=== PATIENT | female | born 1945 | race Caucasian/White ===

== ENCOUNTER 2016-10-13 18:01 | Inpatient (IN) | payer OTHER, BC ==
[~2016-10-13] VITALS: Ht 167.6 cm; Wt 103.8 kg
[2016-10-13 18:17] LABS: POTASSIUM 3.8 mEq/L (3.7-5.4)
[2016-10-13 18:18] LABS: EOSINOPHIL (%) 1.7 % (0-5); EOSINOPHIL COUNT 0.2 K/uL (0-0.3); IMMATURE GRANULOCYTE (%) 0.3 % (0.0-0.7); IMMATURE GRANULOCYTE COUNT 0.3 K/uL; LYMPHOCYTE COUNT 2.5 K/uL (1.0-2.8); MCHC 33.7 G/DL (30.0-36.0); MCV 97.9 FL (83-99); MEAN PLAT.VOLUME 9.9 uM^3 (9.5-12.4); MONOCYTE (%) 6.6 % (3-12); MONOCYTE COUNT 0.7 K/uL (0-0.8); NEUTROPHIL (%) 68.8 % (45-76); NEUTROPHIL COUNT 7.7 K/uL (1.8-6.4); PLATELET COUNT 269 K/uL (156-360); RBC DIS.WIDTH-CV 12.8 % (11.8-14.6); RBC DIS.WIDTH-SD 44.5 % (39-53); RED BLOOD COUNT 3.88 M/uL (3.80-5.20); WHITE BLOOD COUNT 11.2 K/uL (4.1-10.2)
[2016-10-13 18:27] LABS: AMYLASE 55 IU/L (1-118); CHLORIDE 108 mEq/L (99-109); POTASSIUM 4.1 mEq/L (3.7-5.4); SODIUM 139 mEq/L (136-147)
[2016-10-13 18:29] LABS: GLUCOSE 231 mg/dL (70-99)
[2016-10-13 18:30] LABS: ANION GAP 14 MEQ/L (2-14)
[2016-10-13 18:32] LABS: GFR ESTIMATE (CALCULATED) 47 mL/min/; INTER. NORMALIZED RATIO 1.1; PROTHROMBIN TIME 10.7 (9.2-11.2); SERUM ETHYL ALCOHOL < 10 mg/dL
[2016-10-13 18:33] LABS: UREA NITROGEN (BUN) 22 mg/dL (9-23)
[2016-10-13 18:35] LABS: LIPASE 25 U/L (1.0-51.0)
[2016-10-13 18:40] LABS: TROP-I INTERPRETATION NEGATIVE; TROPONIN-I < 0.01 ng/mL (0.0-0.30)
[2016-10-13 19:49] LABS: BASE EXCESS -5.3 mEq/L (-3 to +3); BICARBONATE 23.2 mEq/L (22-26); CARBOXY HGB 1.2 % (0-5); METHEMOGLOBIN 0.8 % (0-1.5); PCO2 58 mm Hg (35-45); PO2 118 mm Hg (80-100); SITE RR; pH 7.21 (7.35-7.45)
[2016-10-13 19:50] LABS: COMMENTS - BLOOD GASES C+; DEVICE 840; FI02 100 %; MECHANICAL RATE 14 resp/min; MODE AC; PEEP 5 CM/H20; TIDAL VOLUME 350 ML; TOTAL RESP RATE 16 resp/min
[2016-10-13 20:37] LABS: BASE EXCESS -4.3 mEq/L (-3 to +3); BICARBONATE 22.6 mEq/L (22-26); CARBOXY HGB 1.3 % (0-5); METHEMOGLOBIN 0.9 % (0-1.5)
[2016-10-13 20:38] LABS: COMMENTS - BLOOD GASES C+; DEVICE 840; FI02 100 %; MECHANICAL RATE 14 resp/min; MODE AC; PCO2 48 mm Hg (35-45); PEEP 5 CM/H20; PO2 89 mm Hg (80-100); SITE RR; TIDAL VOLUME 400 ML; TOTAL RESP RATE 22 resp/min; pH 7.28 (7.35-7.45)
[2016-10-13 21:16] LABS: ADD MIUA? NO; BILIRUBIN NEGATIVE; BLOOD NEGATIVE; COLOR YELLOW ((YELLOW)); GLUCOSE (STRIP) NEGATIVE; KETONES NEGATIVE; LEUKOCYTES NEGATIVE; NITRITE NEGATIVE; PROTEIN (STRIP) 30; SPECIFIC GRAVITY 1.042 (1.000-1.030); UCUL ADDED? NO; UROBILINOGEN 0.2 MG/DL (0.2-1.0)
[2016-10-13 21:24] LABS: AMPHETAMINE NEGATIVE (500 ng/mL); BARBITURATES NEGATIVE (200 ng/mL); BENZODIAZEPINES PRESUMPTIVE POSITIVE (150 ng/mL); COCAINE NEGATIVE (150 ng/mL); INTERNAL CONTROLS VALID? YES; METHADONE NEGATIVE (200 ng/mL); METHAMPHETAMINE NEGATIVE (500 ng/mL); OPIATES (MORPHINE) NEGATIVE (100 ng/mL); OXYCODONE NEGATIVE (100 ng/mL); PHENCYCLIDINE NEGATIVE (25 ng/mL); PROPOXYPHENE NEGATIVE (300 ng/mL); THC CANNABINOIDS NEGATIVE (50 ng/mL); TRICYCLIC ANTIDEPRESSANTS PRESUMPTIVE POSITIVE (300 ng/mL)
[2016-10-13 21:25] LABS: ADD MEDTOX COMMENT Y
[2016-10-13 21:38] LABS: BASE EXCESS -3.6 mEq/L (-3 to +3); BICARBONATE 22.7 mEq/L (22-26); CARBOXY HGB 0.9 % (0-5); COMMENTS - BLOOD GASES C+; DEVICE 840; FI02 100 %; MECHANICAL RATE 20 resp/min; MODE AC; PCO2 45 mm Hg (35-45); PEEP 10 CM/H20; PO2 138 mm Hg (80-100); SITE RR; TIDAL VOLUME 400 ML; TOTAL RESP RATE 20 resp/min; pH 7.31 (7.35-7.45)
[2016-10-13 22:20] LABS: BENZODIAZEPINES, URINE SCREEN POSITIVE (200 ng/mL)
[2016-10-14] VITALS (23 sets, daily range): BP systolic 96–190; BP diastolic 47–128
[2016-10-14 01:41] LABS: HDL CHOLESTEROL 55 MG/DL (Desirable>=50); LDL CHOLESTEROL 78 mg/dL (Desirable<100); NON-HDL CHOLESTEROL 111 mg/dL (Desirable<160); TOTAL CHOLESTEROL 166 mg/dL (Desirable<200); TRIGLYCERIDES 165 MG/DL (Normal: <150)
[2016-10-14 02:04] LABS: METH RESISTANT S AUREUS PCR POSITIVE (NEGATIVE)
[2016-10-14 02:08] LABS: PROBE CHECK PASS
[2016-10-14 05:49] LABS: INTER. NORMALIZED RATIO 1.1; PROTHROMBIN TIME 10.7 (9.2-11.2)
[2016-10-14 06:01] LABS: ANION GAP 9 MEQ/L (2-14); CHLORIDE 110 MEQ/L (99-109); GFR ESTIMATE (CALCULATED) > 59 mL/min/; GLUCOSE 166 mg/dL (70-99); POTASSIUM 4.2 MEQ/L (3.7-5.4); SAMPLE HEMOLYSIS CHECK 0; SAMPLE ICTERIC CHECK 0; SAMPLE LIPEMIA CHECK 0; SODIUM 143 MEQ/L (136-147); UREA NITROGEN (BUN) 19 mg/dL (9-23)
[2016-10-14 06:51] LABS: HEMATOCRIT 32.4 % (36.0-46.0); MCH 32.8 PG (29.0-34.0); MCHC 32.7 G/DL (30.0-36.0); MCV 100.3 FL (83-99); MEAN PLAT.VOLUME 10.2 uM^3 (9.5-12.4); PLATELET COUNT 190 K/uL (156-360); RBC DIS.WIDTH-CV 13.6 % (11.8-14.6); RBC DIS.WIDTH-SD 49.2 % (39-53); RED BLOOD COUNT 3.23 M/uL (3.80-5.20); WHITE BLOOD COUNT 9.1 K/uL (4.1-10.2)
[2016-10-14 06:55] LABS: Estimated Average Glucose 177 mg/dL (70-123); HEMOGLOBIN A1c (GLYCOHEMOGLOB) 7.8 % HGB (Below 5.7)
[2016-10-14 13:23] LABS: BASE EXCESS -2.8 mEq/L (-3 to +3); BICARBONATE 21.9 mEq/L (22-26); CARBOXY HGB 1.4 % (0-5); METHEMOGLOBIN 1.4 % (0-1.5); pH 7.38 (7.35-7.45)
[2016-10-14 13:24] LABS: COMMENTS - BLOOD GASES NAC+; CONTINUOUS POS AIRWAY PRESSURE 5 cm H2O; DEVICE 840; FI02 40 %; MODE TUBE COMPENSATION; PCO2 37 mm Hg (35-45); PO2 84 mm Hg (80-100); SITE LR; TOTAL RESP RATE 23 resp/min
[2016-10-14 23:16] LABS: POINT-OF-CARE METER ID UU14162636
[2016-10-15] VITALS (21 sets, daily range): BP systolic 93–162; BP diastolic 47–103
[2016-10-15 12:22] LABS: POINT-OF-CARE METER ID UU13113731
[2016-10-15 16:57] LABS: POINT-OF-CARE METER ID UU13113731
[2016-10-15 22:42] LABS: POINT-OF-CARE METER ID UU13113731
[2016-10-16] VITALS (15 sets, daily range): BP systolic 126–163; BP diastolic 53–107
[2016-10-16 08:59] LABS: POINT-OF-CARE METER ID UU13113748
[2016-10-16] MEDS ORDERED: NEURONTIN300 MG PO (15:16)
[2016-10-16] MEDS ORDERED: PAXIL10 MG PO (15:16)
[2016-10-16] MEDS ORDERED: TOPROL XL100 MG PO (15:16)
[2016-10-16] MEDS ORDERED: LYRICA75 MG PO (15:17)
[2016-10-16] MEDS ORDERED: LIPITOR80 MG PO (15:17)
[2016-10-16] MEDS ORDERED: VALIUM5 MG PO (15:17)
[2016-10-16] MEDS ORDERED: ACTOS30 MG PO (15:18)
[2016-10-16] MEDS ORDERED: CILOSTAZOL100 MG PO (15:18)
[2016-10-16] MEDS ORDERED: METFORMIN HCL1000 MG PO (15:18)
[2016-10-16] MEDS ORDERED: ZETIA10 MG PO (15:18)
[2016-10-16] MEDS ORDERED: ELAVIL100 MG PO (15:18)
[2016-10-16 21:37] LABS: POINT-OF-CARE USER ID PHATLC
[2016-10-17] VITALS (11 sets, daily range): BP systolic 125–207; BP diastolic 77–122
[2016-10-17 07:25] LABS: HEMATOCRIT 38.6 % (36.0-46.0); MCHC 34.2 G/DL (30.0-36.0); MCV 96.5 FL (83-99); MEAN PLAT.VOLUME 10.4 uM^3 (9.5-12.4); RBC DIS.WIDTH-CV 12.9 % (11.8-14.6); RBC DIS.WIDTH-SD 45.1 % (39-53); WHITE BLOOD COUNT 10.9 K/uL (4.1-10.2)
[2016-10-17 07:28] LABS: PLATELET COUNT 276 K/uL (156-360)
[2016-10-17 07:36] LABS: ANION GAP 16 MEQ/L (2-14); CHLORIDE 103 MEQ/L (99-109); GFR ESTIMATE (CALCULATED) > 59 mL/min/; GLUCOSE 221 mg/dL (70-99); SAMPLE HEMOLYSIS CHECK 0; SAMPLE ICTERIC CHECK 0; SAMPLE LIPEMIA CHECK 0; SODIUM 140 MEQ/L (136-147); UREA NITROGEN (BUN) 13 mg/dL (9-23)
[2016-10-17 07:41] LABS: POTASSIUM 3.3 MEQ/L (3.7-5.4)
[2016-10-17 16:17] LABS: POINT-OF-CARE METER ID UU13113748
[2016-10-18] VITALS (20 sets, daily range): BP systolic 105–171; BP diastolic 56–99
[2016-10-18 10:14] LABS: ANION GAP 12 MEQ/L (2-14); CHLORIDE 107 MEQ/L (99-109); GFR ESTIMATE (CALCULATED) > 59 mL/min/; GLUCOSE 202 mg/dL (70-99); POTASSIUM 3.4 MEQ/L (3.7-5.4); SAMPLE HEMOLYSIS CHECK 0; SAMPLE ICTERIC CHECK 0; SAMPLE LIPEMIA CHECK 0; SODIUM 142 MEQ/L (136-147); UREA NITROGEN (BUN) 17 mg/dL (9-23)
[2016-10-18 10:19] LABS: MAGNESIUM 1.2 mg/dl (1.3-2.7)
[2016-10-18 22:31] LABS: POINT-OF-CARE METER ID UU13113748; POINT-OF-CARE USER ID 609231305
[2016-10-19] VITALS (14 sets, daily range): BP systolic 100–172; BP diastolic 43–109
[2016-10-19 05:59] LABS: EOSINOPHIL (%) 0.6 % (0-5); EOSINOPHIL COUNT 0.1 K/uL (0-0.3); HEMATOCRIT 36.8 % (36.0-46.0); IMMATURE GRANULOCYTE (%) 0.4 % (0.0-0.7); LYMPHOCYTE COUNT 2.3 K/uL (1.0-2.8); MCH 31.8 PG (29.0-34.0); MCHC 32.6 G/DL (30.0-36.0); MCV 97.6 FL (83-99); MEAN PLAT.VOLUME 10.1 uM^3 (9.5-12.4); MONOCYTE (%) 13.9 % (3-12); MONOCYTE COUNT 1.5 K/uL (0-0.8); PLATELET COUNT 280 K/uL (156-360); RBC DIS.WIDTH-CV 13.1 % (11.8-14.6); RED BLOOD COUNT 3.77 M/uL (3.80-5.20); WHITE BLOOD COUNT 10.9 K/uL (4.1-10.2)
[2016-10-19 06:31] LABS: ANION GAP 9 MEQ/L (2-14); CHLORIDE 106 MEQ/L (99-109); GFR ESTIMATE (CALCULATED) > 59 mL/min/; GLUCOSE 189 mg/dL (70-99); POTASSIUM 3.6 MEQ/L (3.7-5.4); SAMPLE HEMOLYSIS CHECK 0; SAMPLE ICTERIC CHECK 0; SAMPLE LIPEMIA CHECK 0; SODIUM 140 MEQ/L (136-147); UREA NITROGEN (BUN) 14 mg/dL (9-23)
[2016-10-19 06:38] LABS: MAGNESIUM 1.7 mg/dl (1.3-2.7)
[2016-10-19 11:58] LABS: POINT-OF-CARE METER ID UU13113748
[2016-10-20] VITALS (13 sets, daily range): BP systolic 94–171; BP diastolic 48–92
[2016-10-20 04:56] LABS: CHLORIDE 106 mEq/L (99-109); MAGNESIUM 1.4 mg/dL (1.3-2.7); POTASSIUM 3.6 mEq/L (3.7-5.4); SODIUM 140 mEq/L (136-147)
[2016-10-20 04:58] LABS: GLUCOSE 172 mg/dL (70-99)
[2016-10-20 04:59] LABS: ANION GAP 9 MEQ/L (2-14)
[2016-10-20 05:01] LABS: GFR ESTIMATE (CALCULATED) > 59 mL/min/
[2016-10-20 05:02] LABS: UREA NITROGEN (BUN) 13 mg/dL (9-23)
[2016-10-20 08:54] LABS: POINT-OF-CARE METER ID UU13113803
[2016-10-20 12:55] LABS: POINT-OF-CARE METER ID UU13113803
[2016-10-20 17:28] LABS: POINT-OF-CARE METER ID UU13113803
[2016-10-20 21:43] LABS: POINT-OF-CARE METER ID UU13113803
[2016-10-21] VITALS (8 sets, daily range): BP systolic 122–172; BP diastolic 65–77
[2016-10-21 05:34] LABS: EOSINOPHIL (%) 0.8 % (0-5); EOSINOPHIL COUNT 0.1 K/uL (0-0.3); HEMATOCRIT 33.7 % (36.0-46.0); IMMATURE GRANULOCYTE (%) 0.5 % (0.0-0.7); IMMATURE GRANULOCYTE COUNT 0.1 K/uL; LYMPHOCYTE COUNT 2.9 K/uL (1.0-2.8); MCH 34.4 PG (29.0-34.0); MCHC 34.7 G/DL (30.0-36.0); MCV 99.1 FL (83-99); MEAN PLAT.VOLUME 10.4 uM^3 (9.5-12.4); MONOCYTE COUNT 1.5 K/uL (0-0.8); NEUTROPHIL (%) 59.9 % (45-76); NEUTROPHIL COUNT 6.7 K/uL (1.8-6.4); PLATELET COUNT 258 K/uL (156-360); RBC DIS.WIDTH-CV 12.6 % (11.8-14.6); RBC DIS.WIDTH-SD 45.6 % (39-53); WHITE BLOOD COUNT 11.2 K/uL (4.1-10.2)
[2016-10-21 05:55] LABS: ANION GAP 10 MEQ/L (2-14); CHLORIDE 102 MEQ/L (99-109); GFR ESTIMATE (CALCULATED) > 59 mL/min/; GLUCOSE 170 mg/dL (70-99); POTASSIUM 4.1 MEQ/L (3.7-5.4); SAMPLE HEMOLYSIS CHECK 0; SAMPLE ICTERIC CHECK 0; SAMPLE LIPEMIA CHECK 0; SODIUM 137 MEQ/L (136-147); UREA NITROGEN (BUN) 11 mg/dL (9-23)
[2016-10-21 08:38] LABS: POINT-OF-CARE METER ID UU14162636
[2016-10-21 11:50] LABS: POINT-OF-CARE METER ID UU14162636
[2016-10-21 17:03] LABS: POINT-OF-CARE METER ID UU14162636
[2016-10-21 21:26] LABS: POINT-OF-CARE METER ID UU13113803
[2016-10-22] VITALS: BP 127/67
[2016-10-22 04:00] VITALS: BP 152/81
[2016-10-22 05:42] LABS: EOSINOPHIL (%) 0.9 % (0-5); EOSINOPHIL COUNT 0.1 K/uL (0-0.3); IMMATURE GRANULOCYTE (%) 0.4 % (0.0-0.7); LYMPHOCYTE COUNT 2.3 K/uL (1.0-2.8); MCH 32.2 PG (29.0-34.0); MCHC 33.1 G/DL (30.0-36.0); MCV 97.2 FL (83-99); MEAN PLAT.VOLUME 10.2 uM^3 (9.5-12.4); MONOCYTE (%) 12.8 % (3-12); MONOCYTE COUNT 1.3 K/uL (0-0.8); NEUTROPHIL (%) 63.4 % (45-76); NEUTROPHIL COUNT 6.7 K/uL (1.8-6.4); PLATELET COUNT 320 K/uL (156-360); RBC DIS.WIDTH-CV 12.4 % (11.8-14.6); RBC DIS.WIDTH-SD 44.1 % (39-53); WHITE BLOOD COUNT 10.5 K/uL (4.1-10.2)
[2016-10-22 06:04] LABS: ANION GAP 11 MEQ/L (2-14); CHLORIDE 100 MEQ/L (99-109); GFR ESTIMATE (CALCULATED) > 59 mL/min/; GLUCOSE 196 mg/dL (70-99); POTASSIUM 4.1 MEQ/L (3.7-5.4); SAMPLE HEMOLYSIS CHECK 0; SAMPLE ICTERIC CHECK 0; SAMPLE LIPEMIA CHECK 0; SODIUM 138 MEQ/L (136-147); UREA NITROGEN (BUN) 15 mg/dL (9-23)
[2016-10-22 08:00] VITALS: BP 168/87
[2016-10-22 08:08] LABS: POINT-OF-CARE METER ID UU14162636
[2016-10-22 12:00] VITALS: BP 102/51
[2016-10-22 13:30] LABS: POINT-OF-CARE METER ID UU14162636
[2016-10-22 16:00] VITALS: BP 131/67
[2016-10-22 16:47] LABS: POINT-OF-CARE METER ID UU14162636
[2016-10-22 20:00] VITALS: BP 130/64
[2016-10-22 22:36] LABS: POINT-OF-CARE METER ID UU13113748
[2016-10-23] VITALS (8 sets, daily range): BP systolic 101–148; BP diastolic 53–75
[2016-10-23 06:13] LABS: MEAN PLAT.VOLUME 10.7 uM^3 (9.5-12.4); PLATELET COUNT 348 K/uL (156-360)
[2016-10-23 06:30] LABS: HEMATOCRIT 37.3 % (36.0-46.0); MCH 33.6 PG (29.0-34.0); MCHC 33.8 G/DL (30.0-36.0); MCV 99.5 FL (83-99); RBC DIS.WIDTH-CV 12.7 % (11.8-14.6); RBC DIS.WIDTH-SD 46.1 % (39-53); RED BLOOD COUNT 3.75 M/uL (3.80-5.20); WHITE BLOOD COUNT 13.2 K/uL (4.1-10.2)
[2016-10-23 06:31] LABS: ANION GAP 13 MEQ/L (2-14); CHLORIDE 99 MEQ/L (99-109); DELETE MACHINE DIFF? YES; GFR ESTIMATE (CALCULATED) 52 mL/min/; GLUCOSE 263 mg/dL (70-99); SAMPLE HEMOLYSIS CHECK 0; SAMPLE ICTERIC CHECK 0; SAMPLE LIPEMIA CHECK 0; SODIUM 135 MEQ/L (136-147)
[2016-10-23 06:34] LABS: POTASSIUM 5.5 MEQ/L (3.7-5.4); UREA NITROGEN (BUN) 27 mg/dL (9-23)
[2016-10-23 07:57] LABS: ABS NEUTROPHIL COUNT 9.76; PLAT.SUFFICIENCY INCREASED; USER ID SDF
[2016-10-23 12:08] LABS: POINT-OF-CARE METER ID UU14174217
[2016-10-23 16:26] LABS: POINT-OF-CARE METER ID UU14174217
[2016-10-24] VITALS: BP 98/52
[2016-10-24 00:26] LABS: POINT-OF-CARE METER ID UU14174217
[2016-10-24 02:00] VITALS: BP 110/66
[2016-10-24 04:00] VITALS: BP 122/63
[2016-10-24 06:47] LABS: ANION GAP 14 MEQ/L (2-14); CHLORIDE 97 MEQ/L (99-109); GFR ESTIMATE (CALCULATED) 47 mL/min/; GLUCOSE 166 mg/dL (70-99); POTASSIUM 4.4 MEQ/L (3.7-5.4); SAMPLE HEMOLYSIS CHECK 0; SAMPLE ICTERIC CHECK 0; SAMPLE LIPEMIA CHECK 0; SODIUM 138 MEQ/L (136-147); UREA NITROGEN (BUN) 32 mg/dL (9-23)
[2016-10-24 08:00] VITALS: BP 106/43
[2016-10-24 10:00] VITALS: BP 125/51
[2016-10-24 11:54] LABS: POINT-OF-CARE USER ID 606021424
[2016-10-24 12:00] VITALS: BP 121/61
[2016-10-24] MEDS ORDERED: VALIUM5 MG PO (12:05)
[2016-10-24] MEDS ORDERED: TRAMADOL HCL50 MG PO (12:05)
[2016-10-24] MEDS ORDERED: LYRICA75 MG PO (12:05)
== END 2016-10-24 13:46 | DRG 64 ==
LOC: EME 18:01 → EDOF 20:56 → 4WEST 20:56 → 5SOUTH 20:56 → 4WEST 10-14 00:34 → 5SOUTH 10-17 00:27 → 4WEST 10-17 07:53
PROVIDERS: Emergency Medicine; Family Medicine; Internal Medicine Cardiovascular Disease; Internal Medicine Critical Care Medicine; Internal Medicine Nephrology; Physician Assistant Medical
DX: I63.412 Cerebral infarction due to embolism of left middle cerebral artery (principal); J96.02 Acute respiratory failure with hypercapnia; E87.2 Acidosis; R56.9 Unspecified convulsions; I48.0 Paroxysmal atrial fibrillation; G81.91 Hemiplegia, unspecified affecting right dominant side; I10 Essential (primary) hypertension; R41.4 Neurologic neglect syndrome; R47.01 Aphasia; E11.9 Type 2 diabetes mellitus without complications; E78.5 Hyperlipidemia, unspecified; I25.810 Atherosclerosis of coronary artery bypass graft(s) without angina pectoris; Z95.1 Presence of aortocoronary bypass graft; M54.5 Low back pain; R47.02 Dysphasia; I65.22 Occlusion and stenosis of left carotid artery; R29.730 NIHSS score 30; Z79.4 Long term (current) use of insulin; Z87.891 Personal history of nicotine dependence; Z95.5 Presence of coronary angioplasty implant and graft; E87.6 Hypokalemia; I70.209 Unspecified atherosclerosis of native arteries of extremities, unspecified extremity; K59.00 Constipation, unspecified; E66.9 Obesity, unspecified; Z68.38 Body mass index [BMI] 38.0-38.9, adult; R47.1 Dysarthria and anarthria; R45.1 Restlessness and agitation; R41.0 Disorientation, unspecified
CPT/HCPCS: 36600; 70450; 70496; 70498; 70551; 71010; 80047; 80048; 80061; 81003; 82150; 82803; 82948; 83036; 83605; 83690; 83735; 84100; 84132 91; 84443; 84484; 84999; 85025; 85027; 85610; 85730; 86850; 86900; 86901; 87070; 87205; 87641; 92507 GN; 92523 GN; 92526 GN; 93005; 93306; 94002; 94003; 94660; 94799; 95819; 97530 GO; 97530 GP; 99281; 99285; G0480; J0360; J1630; J1644; J1815; J1953; J2405; J2704; J3475; J7030; J7050; S0028

== ENCOUNTER 2016-12-25 13:43 | Inpatient (IN) | payer OTHER, BC ==
[~2016-12-25] VITALS: Ht 162.6 cm; Wt 96.0 kg
[~2016-12-25 13:43] MED LIST: ACTOS30 MG PO; CILOSTAZOL100 MG PO; ELAVIL100 MG PO; LIPITOR80 MG PO; LYRICA75 MG PO; METFORMIN HCL1000 MG PO; NEURONTIN300 MG PO; PAXIL10 MG PO; TOPROL XL100 MG PO; TRAMADOL HCL50 MG PO; VALIUM5 MG PO; ZETIA10 MG PO
[2016-12-25 14:29] LABS: HEMATOCRIT 37.2 % (36.0-46.0); MCH 31.5 PG (29.0-34.0); MCHC 33.1 G/DL (30.0-36.0); MCV 95.1 FL (83-99); MEAN PLAT.VOLUME 9.8 uM^3 (9.5-12.4); PLATELET COUNT 248 K/uL (156-360); RBC DIS.WIDTH-CV 13.3 % (11.8-14.6); RBC DIS.WIDTH-SD 46.5 % (39-53); RED BLOOD COUNT 3.91 M/uL (3.80-5.20); WHITE BLOOD COUNT 9.7 K/uL (4.1-10.2)
[2016-12-25 14:38] LABS: CHLORIDE 104 mEq/L (99-109); POTASSIUM 3.1 mEq/L (3.7-5.4); SODIUM 142 mEq/L (136-147)
[2016-12-25 14:40] LABS: GLUCOSE 116 mg/dL (70-99)
[2016-12-25 14:41] LABS: ANION GAP 14 MEQ/L (2-14)
[2016-12-25 14:44] LABS: GFR ESTIMATE (CALCULATED) 43 mL/min/; UREA NITROGEN (BUN) 19 mg/dL (9-23)
[2016-12-25 14:48] LABS: MAGNESIUM 0.9 mg/dL (1.3-2.7)
[2016-12-25] MEDS ORDERED: COLACE100 MG PO (16:38)
[2016-12-25] MEDS ORDERED: LASIX20 MG PO (16:39)
[2016-12-25] MEDS ORDERED: POTASSIUM CHLO10 MEQ PO (16:39)
[2016-12-25] MEDS ORDERED: LANTUS 3 M100 UNITS1 SC (16:41)
[2016-12-25] MEDS ORDERED: LYRICA50 MG PO (16:43)
[2016-12-25] MEDS ORDERED: NOVOLOG PE100 UNITS/ SC (16:43)
[2016-12-25] MEDS ORDERED: VALIUM5 MG PO (16:44)
[2016-12-25] MEDS ORDERED: CYMBALTA60 MG PO (16:44)
[2016-12-25] MEDS ORDERED: TYLENOL REGULA325 MG PO (16:45)
[2016-12-25] MEDS ORDERED: DULCOLAX10 MG PR (16:45)
[2016-12-25] MEDS ORDERED: ELIQUIS5 MG PO (16:46)
[2016-12-25] MEDS ORDERED: ULTRAM50 MG PO (16:46)
[2016-12-25] MEDS ORDERED: LIPITOR80 MG PO (16:47)
[2016-12-25] MEDS ORDERED: CHILD ASPIRIN81 M1 PO (16:47)
[2016-12-25] MEDS ORDERED: ZETIA10 MG PO (16:48)
[2016-12-25] MEDS ORDERED: GLUCOPHAGE1000 MG PO (16:49)
[2016-12-25] MEDS ORDERED: DUONEB 2.5-0.5 M3 ML AEROSOL (16:54)
[2016-12-25] MEDS ORDERED: ADVAIR HFA120 INHALA IH (16:55)
[2016-12-25] MEDS ORDERED: BAZA PROTECT CR57 GM TP (16:56)
[2016-12-25] MEDS ORDERED: AQUAPHOR W-NAT50 GM TP (16:56)
[2016-12-25 18:41] LABS: TROP-I INTERPRETATION NEGATIVE; TROPONIN-I 0.02 ng/mL (0.0-0.30)
[2016-12-25 20:01] VITALS: BP 97/61
[2016-12-25 20:31] VITALS: BP 98/60
[2016-12-25 21:28] VITALS: BP 148/74
[2016-12-26 07:44] VITALS: BP 136/65
[2016-12-26 11:25] VITALS: BP 109/69
[2016-12-26 15:53] VITALS: BP 155/74
[2016-12-26 19:33] VITALS: BP 127/58
[2016-12-26 23:44] VITALS: BP 119/65
[2016-12-27 06:52] LABS: EOSINOPHIL (%) 2.4 % (0-5); EOSINOPHIL COUNT 0.3 K/uL (0-0.3); HEMATOCRIT 30.8 % (36.0-46.0); IMMATURE GRANULOCYTE (%) 0.5 % (0.0-0.7); IMMATURE GRANULOCYTE COUNT 0.1 K/uL; INSTRUMENT ABS NEUTROPHIL CT 6.7 K/uL; LYMPHOCYTE COUNT 2.4 K/uL (1.0-2.8); MCH 31.4 PG (29.0-34.0); MCHC 32.1 G/DL (30.0-36.0); MCV 97.8 FL (83-99); MEAN PLAT.VOLUME 10.2 uM^3 (9.5-12.4); MONOCYTE (%) 10.4 % (3-12); MONOCYTE COUNT 1.1 K/uL (0-0.8); NEUTROPHIL (%) 63.8 % (45-76); NEUTROPHIL COUNT 6.7 K/uL (1.8-6.4); PLATELET COUNT 198 K/uL (156-360); RBC DIS.WIDTH-CV 13.6 % (11.8-14.6); RBC DIS.WIDTH-SD 48.7 % (39-53); RED BLOOD COUNT 3.15 M/uL (3.80-5.20); WHITE BLOOD COUNT 10.6 K/uL (4.1-10.2)
[2016-12-27 06:54] LABS: C DIFF TOXIN NEGATIVE (NEGATIVE)
[2016-12-27 06:55] LABS: PROBE CHECK PASS; SPECIMEN PROCESSING CONTROL PASS
[2016-12-27 07:02] LABS: ANION GAP 8 MEQ/L (2-14); CHLORIDE 108 MEQ/L (99-109); GFR ESTIMATE (CALCULATED) 47 mL/min/; GLUCOSE 132 mg/dL (70-99); POTASSIUM 3.2 MEQ/L (3.7-5.4); SAMPLE HEMOLYSIS CHECK 0; SAMPLE ICTERIC CHECK 0; SAMPLE LIPEMIA CHECK 0; SODIUM 141 MEQ/L (136-147); UREA NITROGEN (BUN) 12 mg/dL (9-23)
[2016-12-27 07:42] VITALS: BP 133/70
[2016-12-27 16:04] VITALS: BP 110/59
[2016-12-27 22:21] VITALS: BP 113/57
[2016-12-28 06:40] LABS: EOSINOPHIL (%) 2.4 % (0-5); EOSINOPHIL COUNT 0.3 K/uL (0-0.3); IMMATURE GRANULOCYTE (%) 0.8 % (0.0-0.7); IMMATURE GRANULOCYTE COUNT 0.1 K/uL; INSTRUMENT ABS NEUTROPHIL CT 7.2 K/uL; MCH 30.8 PG (29.0-34.0); MCHC 31.8 G/DL (30.0-36.0); MCV 96.9 FL (83-99); MEAN PLAT.VOLUME 10.1 uM^3 (9.5-12.4); MONOCYTE (%) 7.7 % (3-12); MONOCYTE COUNT 0.8 K/uL (0-0.8); NEUTROPHIL (%) 69.9 % (45-76); NEUTROPHIL COUNT 7.2 K/uL (1.8-6.4); PLATELET COUNT 221 K/uL (156-360); RBC DIS.WIDTH-CV 13.7 % (11.8-14.6); RED BLOOD COUNT 3.51 M/uL (3.80-5.20); WHITE BLOOD COUNT 10.3 K/uL (4.1-10.2)
[2016-12-28 07:20] LABS: ANION GAP 10 MEQ/L (2-14); CHLORIDE 109 MEQ/L (99-109); GFR ESTIMATE (CALCULATED) > 59 mL/min/; GLUCOSE 124 mg/dL (70-99); SAMPLE HEMOLYSIS CHECK 0; SAMPLE ICTERIC CHECK 0; SAMPLE LIPEMIA CHECK 0; SODIUM 142 MEQ/L (136-147); UREA NITROGEN (BUN) 8 mg/dL (9-23)
[2016-12-28 07:21] VITALS: BP 118/58
[2016-12-28 07:24] LABS: POTASSIUM 3.9 MEQ/L (3.7-5.4)
[2016-12-28 17:00] VITALS: BP 110/62
[2016-12-28 22:17] VITALS: BP 111/52
[2016-12-29 03:41] VITALS: BP 117/64
[2016-12-29 06:28] LABS: EOSINOPHIL (%) 3.4 % (0-5); EOSINOPHIL COUNT 0.3 K/uL (0-0.3); HEMATOCRIT 33.2 % (36.0-46.0); IMMATURE GRANULOCYTE (%) 0.7 % (0.0-0.7); IMMATURE GRANULOCYTE COUNT 0.1 K/uL; LYMPHOCYTE COUNT 2.4 K/uL (1.0-2.8); MCH 30.9 PG (29.0-34.0); MCHC 32.5 G/DL (30.0-36.0); MCV 95.1 FL (83-99); MEAN PLAT.VOLUME 10.3 uM^3 (9.5-12.4); MONOCYTE (%) 12.4 % (3-12); NEUTROPHIL (%) 51.8 % (45-76); PLATELET COUNT 216 K/uL (156-360); RBC DIS.WIDTH-CV 13.8 % (11.8-14.6); RBC DIS.WIDTH-SD 48.1 % (39-53); RED BLOOD COUNT 3.49 M/uL (3.80-5.20); WHITE BLOOD COUNT 7.7 K/uL (4.1-10.2)
[2016-12-29 06:59] LABS: ANION GAP 11 MEQ/L (2-14); CHLORIDE 103 MEQ/L (99-109); GFR ESTIMATE (CALCULATED) 52 mL/min/; GLUCOSE 161 mg/dL (70-99); POTASSIUM 3.6 MEQ/L (3.7-5.4); SAMPLE HEMOLYSIS CHECK 0; SAMPLE ICTERIC CHECK 0; SAMPLE LIPEMIA CHECK 0; SODIUM 141 MEQ/L (136-147); UREA NITROGEN (BUN) 10 mg/dL (9-23)
[2016-12-29 12:21] VITALS: BP 117/60
[2016-12-29 20:50] LABS: POINT-OF-CARE METER ID UU13113725
[2016-12-29 22:48] VITALS: BP 106/54
[2016-12-30 06:57] LABS: EOSINOPHIL (%) 1.8 % (0-5); EOSINOPHIL COUNT 0.2 K/uL (0-0.3); IMMATURE GRANULOCYTE (%) 0.7 % (0.0-0.7); IMMATURE GRANULOCYTE COUNT 0.1 K/uL; INSTRUMENT ABS NEUTROPHIL CT 4.4 K/uL; LYMPHOCYTE COUNT 2.7 K/uL (1.0-2.8); MCHC 33.1 G/DL (30.0-36.0); MCV 93.8 FL (83-99); MEAN PLAT.VOLUME 10.5 uM^3 (9.5-12.4); MONOCYTE (%) 13.6 % (3-12); MONOCYTE COUNT 1.2 K/uL (0-0.8); NEUTROPHIL (%) 51.7 % (45-76); NEUTROPHIL COUNT 4.4 K/uL (1.8-6.4); PLATELET COUNT 239 K/uL (156-360); RBC DIS.WIDTH-CV 13.7 % (11.8-14.6); RBC DIS.WIDTH-SD 46.5 % (39-53); RED BLOOD COUNT 3.84 M/uL (3.80-5.20); WHITE BLOOD COUNT 8.5 K/uL (4.1-10.2)
[2016-12-30 07:04] VITALS: BP 105/71
[2016-12-30 07:32] LABS: ANION GAP 13 MEQ/L (2-14); CHLORIDE 100 MEQ/L (99-109); GFR ESTIMATE (CALCULATED) 40 mL/min/; GLUCOSE 174 mg/dL (70-99); POTASSIUM 3.7 MEQ/L (3.7-5.4); SAMPLE HEMOLYSIS CHECK 0; SAMPLE ICTERIC CHECK 0; SAMPLE LIPEMIA CHECK 0; SODIUM 140 MEQ/L (136-147); UREA NITROGEN (BUN) 16 mg/dL (9-23)
[2016-12-30 10:48] LABS: POINT-OF-CARE METER ID UU13113725
[2016-12-30 16:02] VITALS: BP 107/65
[2016-12-30 23:20] VITALS: BP 100/59
[2016-12-31 07:14] LABS: ANION GAP 12 MEQ/L (2-14); CHLORIDE 96 MEQ/L (99-109); GFR ESTIMATE (CALCULATED) 43 mL/min/; GLUCOSE 193 mg/dL (70-99); POTASSIUM 3.3 MEQ/L (3.7-5.4); SAMPLE HEMOLYSIS CHECK 0; SAMPLE ICTERIC CHECK 0; SAMPLE LIPEMIA CHECK 0; SODIUM 139 MEQ/L (136-147); UREA NITROGEN (BUN) 21 mg/dL (9-23)
[2016-12-31 07:20] VITALS: BP 110/69
[2016-12-31 16:08] LABS: POINT-OF-CARE METER ID UU13113725
[2016-12-31 16:15] VITALS: BP 111/69
[2016-12-31 21:22] LABS: POINT-OF-CARE METER ID UU13113725
[2017-01-01 00:18] VITALS: BP 92/60
[2017-01-01 06:43] LABS: EOSINOPHIL (%) 2.3 % (0-5); EOSINOPHIL COUNT 0.2 K/uL (0-0.3); HEMATOCRIT 35.6 % (36.0-46.0); IMMATURE GRANULOCYTE (%) 0.8 % (0.0-0.7); IMMATURE GRANULOCYTE COUNT 0.1 K/uL; INSTRUMENT ABS NEUTROPHIL CT 5.1 K/uL; LYMPHOCYTE COUNT 2.6 K/uL (1.0-2.8); MCH 30.5 PG (29.0-34.0); MCHC 32.6 G/DL (30.0-36.0); MCV 93.7 FL (83-99); MONOCYTE (%) 13.1 % (3-12); MONOCYTE COUNT 1.2 K/uL (0-0.8); NEUTROPHIL COUNT 5.1 K/uL (1.8-6.4); PLATELET COUNT 252 K/uL (156-360); RBC DIS.WIDTH-CV 13.6 % (11.8-14.6); RBC DIS.WIDTH-SD 46.5 % (39-53); WHITE BLOOD COUNT 9.2 K/uL (4.1-10.2)
[2017-01-01 06:43] LABS: POINT-OF-CARE METER ID UU13113725
[2017-01-01 06:56] VITALS: BP 104/55
[2017-01-01 07:10] LABS: ANION GAP 10 MEQ/L (2-14); CHLORIDE 97 MEQ/L (99-109); GFR ESTIMATE (CALCULATED) 40 mL/min/; GLUCOSE 205 mg/dL (70-99); POTASSIUM 3.2 MEQ/L (3.7-5.4); SAMPLE HEMOLYSIS CHECK 0; SAMPLE ICTERIC CHECK 0; SAMPLE LIPEMIA CHECK 0; SODIUM 139 MEQ/L (136-147); UREA NITROGEN (BUN) 25 mg/dL (9-23)
[2017-01-01 10:51] LABS: MAGNESIUM 1.1 mg/dl (1.3-2.7)
[2017-01-01 11:42] LABS: POINT-OF-CARE METER ID UU13113725
[2017-01-01] MEDS ORDERED: K-DUR20 MEQ PO (12:47)
[2017-01-01] MEDS ORDERED: LYRICA50 MG PO (12:48)
[2017-01-01] MEDS ORDERED: ULTRAM50 MG PO (12:48)
[2017-01-01] MEDS ORDERED: VALIUM5 MG PO (12:48)
== END 2017-01-01 15:31 | disposition designated cancer center or children's hospital (05) | DRG 190 ==
LOC: EME 13:43 → 5EAST 19:45 → EDOF 19:45 → 5EAST 21:00
PROVIDERS: Emergency Medicine; Family Medicine
PROC: 5A09357 Assistance with Respiratory Ventilation, Less than 24 Consecutive Hours, Continuous Positive Airway Pressure (ICD-10-PCS; principal; 2016-12-28)
DX: J44.0 Chronic obstructive pulmonary disease with (acute) lower respiratory infection (principal); J18.9 Pneumonia, unspecified organism; J20.9 Acute bronchitis, unspecified; E87.6 Hypokalemia; E83.42 Hypomagnesemia; E87.70 Fluid overload, unspecified; I48.91 Unspecified atrial fibrillation; I27.2 Other secondary pulmonary hypertension; I10 Essential (primary) hypertension; E11.9 Type 2 diabetes mellitus without complications; I69.391 Dysphagia following cerebral infarction; I69.320 Aphasia following cerebral infarction; I69.398 Other sequelae of cerebral infarction; R26.2 Difficulty in walking, not elsewhere classified; E78.5 Hyperlipidemia, unspecified; I25.10 Atherosclerotic heart disease of native coronary artery without angina pectoris; E66.9 Obesity, unspecified; G47.33 Obstructive sleep apnea (adult) (pediatric); D64.9 Anemia, unspecified; Z87.891 Personal history of nicotine dependence; Z95.1 Presence of aortocoronary bypass graft; Z68.36 Body mass index [BMI] 36.0-36.9, adult; I25.2 Old myocardial infarction
CPT/HCPCS: 71010; 71020; 80048; 82948; 83735; 83880; 84100; 84484; 85025; 85027; 87493; 93005; 94640; 94640 76; 94660; 94799; 99202; 99281; 99285; J1815; J1940; J1956; J3475; J3480; J7030

== ENCOUNTER 2017-01-25 17:05 | Inpatient (IN) | payer OTHER, BC ==
[~2017-01-25] VITALS: Ht 165.1 cm; Wt 92.3 kg
[~2017-01-25 17:05] MED LIST changes: +ADVAIR HFA120 INHALA IH; +AQUAPHOR W-NAT50 GM TP; +BAZA PROTECT CR57 GM TP; +CHILD ASPIRIN81 M1 PO; +COLACE100 MG PO; +CYMBALTA60 MG PO; +DULCOLAX10 MG PR; +DUONEB 2.5-0.5 M3 ML AEROSOL; +ELIQUIS5 MG PO; +GLUCOPHAGE1000 MG PO; +K-DUR20 MEQ PO; +LANTUS 3 M100 UNITS1 SC; +LASIX20 MG PO; +LYRICA50 MG PO; +NOVOLOG PE100 UNITS/ SC; +POTASSIUM CHLO10 MEQ PO; +TYLENOL REGULA325 MG PO; +ULTRAM50 MG PO
[2017-01-25 17:21] LABS: EOSINOPHIL (%) 2.1 % (0-5); EOSINOPHIL COUNT 0.2 K/uL (0-0.3); IMMATURE GRANULOCYTE (%) 0.5 % (0.0-0.7); INSTRUMENT ABS NEUTROPHIL CT 4.2 K/uL; MCH 31.1 PG (29.0-34.0); MCHC 32.9 G/DL (30.0-36.0); MCV 94.4 FL (83-99); MEAN PLAT.VOLUME 10.3 uM^3 (9.5-12.4); MONOCYTE (%) 8.8 % (3-12); MONOCYTE COUNT 0.7 K/uL (0-0.8); NEUTROPHIL (%) 51.8 % (45-76); NEUTROPHIL COUNT 4.2 K/uL (1.8-6.4); PLATELET COUNT 204 K/uL (156-360); RBC DIS.WIDTH-CV 14.8 % (11.8-14.6); RBC DIS.WIDTH-SD 51.2 % (39-53); WHITE BLOOD COUNT 8.2 K/uL (4.1-10.2)
[2017-01-25 17:31] LABS: INTER. NORMALIZED RATIO 1.2; PROTHROMBIN TIME 12.5 (9.2-11.2); PTT 28.8 (25-32)
[2017-01-25 17:42] LABS: TROP-I INTERPRETATION NEGATIVE; TROPONIN-I 0.02 ng/mL (0.0-0.30)
[2017-01-25] MEDS ORDERED: K-DUR20 MEQ PO (21:32)
[2017-01-25 22:04] LABS: AMYLASE 35 IU/L (1-118); CHLORIDE 109 mEq/L (99-109); POTASSIUM 4.3 mEq/L (3.7-5.4); SODIUM 139 mEq/L (136-147)
[2017-01-25 22:06] LABS: GLUCOSE 149 mg/dL (70-99)
[2017-01-25 22:07] LABS: ANION GAP 13 MEQ/L (2-14)
[2017-01-25 22:09] LABS: SERUM ETHYL ALCOHOL < 10 mg/dL
[2017-01-25 22:10] LABS: GFR ESTIMATE (CALCULATED) 47 mL/min/
[2017-01-25 22:11] LABS: UREA NITROGEN (BUN) 17 mg/dL (9-23)
[2017-01-25 22:13] LABS: LIPASE 15 U/L (1.0-51.0)
[2017-01-25 22:36] LABS: HDL CHOLESTEROL 47 MG/DL (Desirable>=50); LDL CHOLESTEROL 45 mg/dL (Desirable<100); NON-HDL CHOLESTEROL 66 mg/dL (Desirable<160); TOTAL CHOLESTEROL 113 mg/dL (Desirable<200); TRIGLYCERIDES 105 MG/DL (Normal: <150)
[2017-01-25 22:47] LABS: Estimated Average Glucose 137 mg/dL (70-123); HEMOGLOBIN A1c (GLYCOHEMOGLOB) 6.4 % HGB (Below 5.7)
[2017-01-25 23:40] VITALS: BP 126/60
[2017-01-26] VITALS: BP 120/60
[2017-01-26 04:00] VITALS: BP 114/55
[2017-01-26 07:00] LABS: HEMATOCRIT 31.6 % (36.0-46.0); MCH 31.1 PG (29.0-34.0); MCHC 32.6 G/DL (30.0-36.0); MCV 95.5 FL (83-99); MEAN PLAT.VOLUME 10.6 uM^3 (9.5-12.4); PLATELET COUNT 204 K/uL (156-360); RBC DIS.WIDTH-CV 14.8 % (11.8-14.6); RBC DIS.WIDTH-SD 52.1 % (39-53); RED BLOOD COUNT 3.31 M/uL (3.80-5.20); WHITE BLOOD COUNT 7.5 K/uL (4.1-10.2)
[2017-01-26 07:59] VITALS: BP 102/55
[2017-01-26 08:06] LABS: CHLORIDE 110 mEq/L (99-109); POTASSIUM 4.3 mEq/L (3.7-5.4); SODIUM 142 mEq/L (136-147)
[2017-01-26 08:09] LABS: ANION GAP 9 MEQ/L (2-14)
[2017-01-26 08:10] LABS: GLUCOSE 97 mg/dL (70-99); TOTAL BILIRUBIN 0.5 mg/dL (0.0-1.0)
[2017-01-26 08:12] LABS: ALKALINE PHOSPHATASE 30 IU/L (3-129); GFR ESTIMATE (CALCULATED) 58 mL/min/
[2017-01-26 08:13] LABS: UREA NITROGEN (BUN) 16 mg/dL (9-23)
[2017-01-26 11:14] VITALS: BP 132/60
[2017-01-26 15:37] VITALS: BP 110/69
[2017-01-26 20:00] VITALS: BP 153/68
[2017-01-26 20:44] LABS: POINT-OF-CARE METER ID UU14174225
[2017-01-27 00:27] VITALS: BP 154/70
[2017-01-27 04:00] VITALS: BP 107/59
[2017-01-27 06:49] LABS: EOSINOPHIL (%) 3.2 % (0-5); EOSINOPHIL COUNT 0.2 K/uL (0-0.3); HEMATOCRIT 30.4 % (36.0-46.0); IMMATURE GRANULOCYTE (%) 0.5 % (0.0-0.7); INSTRUMENT ABS NEUTROPHIL CT 2.8 K/uL; LYMPHOCYTE COUNT 2.9 K/uL (1.0-2.8); MCH 31.6 PG (29.0-34.0); MCHC 33.2 G/DL (30.0-36.0); MEAN PLAT.VOLUME 10.2 uM^3 (9.5-12.4); MONOCYTE (%) 10.7 % (3-12); MONOCYTE COUNT 0.7 K/uL (0-0.8); NEUTROPHIL (%) 41.9 % (45-76); NEUTROPHIL COUNT 2.8 K/uL (1.8-6.4); PLATELET COUNT 192 K/uL (156-360); RBC DIS.WIDTH-CV 14.8 % (11.8-14.6); RBC DIS.WIDTH-SD 51.8 % (39-53); WHITE BLOOD COUNT 6.6 K/uL (4.1-10.2)
[2017-01-27 07:11] LABS: ANION GAP 7 MEQ/L (2-14); CHLORIDE 106 MEQ/L (99-109); GFR ESTIMATE (CALCULATED) 52 mL/min/; GLUCOSE 97 mg/dL (70-99); POTASSIUM 4.2 MEQ/L (3.7-5.4); SAMPLE HEMOLYSIS CHECK 0; SAMPLE ICTERIC CHECK 0; SAMPLE LIPEMIA CHECK 0; SODIUM 141 MEQ/L (136-147); UREA NITROGEN (BUN) 18 mg/dL (9-23)
[2017-01-27 07:55] VITALS: BP 121/59
[2017-01-27 11:27] VITALS: BP 132/62
[2017-01-27 15:51] VITALS: BP 147/69
[2017-01-27 17:03] LABS: POINT-OF-CARE METER ID UU14188625
[2017-01-27 19:24] VITALS: BP 147/69
[2017-01-28 00:36] VITALS: BP 104/52
[2017-01-28 06:40] LABS: EOSINOPHIL (%) 2.6 % (0-5); EOSINOPHIL COUNT 0.2 K/uL (0-0.3); HEMATOCRIT 29.6 % (36.0-46.0); IMMATURE GRANULOCYTE (%) 0.3 % (0.0-0.7); INSTRUMENT ABS NEUTROPHIL CT 3.2 K/uL; LYMPHOCYTE COUNT 2.9 K/uL (1.0-2.8); MCH 31.3 PG (29.0-34.0); MCHC 33.1 G/DL (30.0-36.0); MCV 94.6 FL (83-99); MEAN PLAT.VOLUME 10.4 uM^3 (9.5-12.4); MONOCYTE (%) 10.2 % (3-12); MONOCYTE COUNT 0.7 K/uL (0-0.8); NEUTROPHIL (%) 45.6 % (45-76); NEUTROPHIL COUNT 3.2 K/uL (1.8-6.4); PLATELET COUNT 199 K/uL (156-360); RBC DIS.WIDTH-CV 14.9 % (11.8-14.6); RBC DIS.WIDTH-SD 51.3 % (39-53); RED BLOOD COUNT 3.13 M/uL (3.80-5.20); WHITE BLOOD COUNT 7.1 K/uL (4.1-10.2)
[2017-01-28 08:43] VITALS: BP 108/56
[2017-01-28 12:55] VITALS: BP 110/54
[2017-01-28 17:03] VITALS: BP 107/56
[2017-01-28 20:52] VITALS: BP 130/65
[2017-01-28 21:42] LABS: POINT-OF-CARE METER ID UU14174225
[2017-01-29 00:21] VITALS: BP 104/51
[2017-01-29 00:36] LABS: C DIFF TOXIN NEGATIVE (NEGATIVE); PROBE CHECK PASS; SPECIMEN PROCESSING CONTROL PASS
[2017-01-29 04:10] VITALS: BP 137/72
[2017-01-29 08:09] VITALS: BP 102/51
[2017-01-29 08:41] LABS: POINT-OF-CARE METER ID UU14188625
[2017-01-29 08:47] LABS: EOSINOPHIL (%) 2.2 % (0-5); EOSINOPHIL COUNT 0.2 K/uL (0-0.3); HEMATOCRIT 31.4 % (36.0-46.0); IMMATURE GRANULOCYTE (%) 0.6 % (0.0-0.7); INSTRUMENT ABS NEUTROPHIL CT 3.7 K/uL; LYMPHOCYTE COUNT 2.2 K/uL (1.0-2.8); MCH 30.8 PG (29.0-34.0); MCHC 32.5 G/DL (30.0-36.0); MCV 94.9 FL (83-99); MEAN PLAT.VOLUME 9.8 uM^3 (9.5-12.4); MONOCYTE (%) 9.6 % (3-12); MONOCYTE COUNT 0.7 K/uL (0-0.8); NEUTROPHIL (%) 54.2 % (45-76); NEUTROPHIL COUNT 3.7 K/uL (1.8-6.4); PLATELET COUNT 193 K/uL (156-360); RBC DIS.WIDTH-SD 51.8 % (39-53); RED BLOOD COUNT 3.31 M/uL (3.80-5.20); WHITE BLOOD COUNT 6.8 K/uL (4.1-10.2)
[2017-01-29 09:11] LABS: ANION GAP 8 MEQ/L (2-14); CHLORIDE 104 MEQ/L (99-109); GFR ESTIMATE (CALCULATED) 58 mL/min/; GLUCOSE 110 mg/dL (70-99); POTASSIUM 4.4 MEQ/L (3.7-5.4); SAMPLE HEMOLYSIS CHECK 0; SAMPLE ICTERIC CHECK 0; SAMPLE LIPEMIA CHECK 0; SODIUM 139 MEQ/L (136-147); UREA NITROGEN (BUN) 15 mg/dL (9-23)
[2017-01-29 13:38] VITALS: BP 132/59
[2017-01-29 15:38] VITALS: BP 101/52
[2017-01-29 17:40] LABS: POINT-OF-CARE METER ID UU14174225
[2017-01-29 19:39] VITALS: BP 115/63
[2017-01-30 00:47] VITALS: BP 91/52
[2017-01-30 04:25] VITALS: BP 109/59
[2017-01-30 09:24] LABS: POINT-OF-CARE METER ID UU14174225
[2017-01-30 10:19] VITALS: BP 127/69
[2017-01-30 13:19] LABS: POINT-OF-CARE METER ID UU14174225
== END 2017-01-30 15:40 | disposition home health service (06) | DRG 65 ==
LOC: EME → EDBD 17:05 → EME 17:05 → 5SOUTH 21:05 → EDOF 21:05 → 5SOUTH 23:41
PROVIDERS: Emergency Medicine; Family Medicine; Internal Medicine
DX: I63.9 Cerebral infarction, unspecified (principal); R13.10 Dysphagia, unspecified; G81.91 Hemiplegia, unspecified affecting right dominant side; R47.1 Dysarthria and anarthria; R29.810 Facial weakness; G47.33 Obstructive sleep apnea (adult) (pediatric); I48.91 Unspecified atrial fibrillation; J44.9 Chronic obstructive pulmonary disease, unspecified; E11.9 Type 2 diabetes mellitus without complications; I10 Essential (primary) hypertension; I25.10 Atherosclerotic heart disease of native coronary artery without angina pectoris; D64.9 Anemia, unspecified; E78.5 Hyperlipidemia, unspecified; E66.9 Obesity, unspecified; Z68.33 Body mass index [BMI] 33.0-33.9, adult; Z87.891 Personal history of nicotine dependence
CPT/HCPCS: 70450; 70551; 80048; 80053; 80061; 81003; 82150; 82948; 83036; 83690; 84484; 85025; 85027; 85610; 85730; 86900; 86901; 87493; 92507 GN; 92523 GN; 92526 GN; 92610 GN; 93005; 94640; 94640 76; 94660; 94799; 99202; 99281; 99285; G0480; J1815; J2405

== ENCOUNTER → 2017-03-01 | Outpatient (CLI) | payer MEDICARE, BC | END | disposition home or self-care (01) | LOC: CDC 10:38 | DX: R94.31 Abnormal electrocardiogram [ECG] [EKG] (principal); H25.12 Age-related nuclear cataract, left eye | CPT/HCPCS: 93000 ==

== ENCOUNTER 2017-03-02 11:58 | Emergency (ER) | payer OTHER, BC ==
[~2017-03-02] VITALS: Ht 167.6 cm; Wt 94.5 kg
[2017-03-02 15:20] VITALS: BP 152/95
== END 2017-03-02 15:20 | disposition home or self-care (01) ==
LOC: EME 11:58
DX: S93.402A Sprain of unspecified ligament of left ankle, initial encounter (principal); W01.0XXA Fall on same level from slipping, tripping and stumbling without subsequent striking against object, initial encounter; Z86.73 Personal history of transient ischemic attack (TIA), and cerebral infarction without residual deficits; Z95.1 Presence of aortocoronary bypass graft; Z95.5 Presence of coronary angioplasty implant and graft; I48.91 Unspecified atrial fibrillation; Z99.81 Dependence on supplemental oxygen; E11.9 Type 2 diabetes mellitus without complications; I10 Essential (primary) hypertension; I25.2 Old myocardial infarction; Z79.4 Long term (current) use of insulin; Z79.82 Long term (current) use of aspirin; Z79.84 Long term (current) use of oral hypoglycemic drugs; Z87.891 Personal history of nicotine dependence
CPT/HCPCS: 73630; 99281; 99284; G8978 GP CI; G8979 GP CH; G8987 GO CI; G8988 GO CH

== ENCOUNTER 2017-04-22 17:37 | Inpatient (IN) | payer OTHER, BC ==
[~2017-04-22] VITALS: Ht 165.1 cm; Wt 81.3 kg
[2017-04-22 17:56] LABS: MCV 97.1 FL (83-99); MEAN PLAT.VOLUME 9.9 uM^3 (9.5-12.4); PLATELET COUNT 237 K/uL (156-360); RBC DIS.WIDTH-CV 13.5 % (11.8-14.6); RBC DIS.WIDTH-SD 48.4 % (39-53); RED BLOOD COUNT 4.12 M/uL (3.80-5.20); WHITE BLOOD COUNT 9.4 K/uL (4.1-10.2)
[2017-04-22 18:04] LABS: CHLORIDE 100 mEq/L (99-109); POTASSIUM 4.8 mEq/L (3.7-5.4); SODIUM 138 mEq/L (136-147)
[2017-04-22 18:07] LABS: GLUCOSE 151 mg/dL (70-99)
[2017-04-22 18:08] LABS: ANION GAP 17 MEQ/L (2-14)
[2017-04-22 18:09] LABS: TOTAL BILIRUBIN 0.5 mg/dL (0.0-1.0)
[2017-04-22 18:10] LABS: ALKALINE PHOSPHATASE 34 IU/L (3-129); GFR ESTIMATE (CALCULATED) 16 mL/min/
[2017-04-22 18:12] LABS: UREA NITROGEN (BUN) 32 mg/dL (9-23)
[2017-04-22 18:14] LABS: LIPASE 34 U/L (1.0-51.0)
[2017-04-22 19:52] LABS: ADD MIUA? YES; BILIRUBIN NEGATIVE; BLOOD SMALL; COLOR AMBER ((YELLOW)); GLUCOSE (STRIP) NEGATIVE; KETONES NEGATIVE; LEUKOCYTES LARGE; NITRITE NEGATIVE; PROTEIN (STRIP) 100; SPECIFIC GRAVITY 1.018 (1.000-1.030); UROBILINOGEN 0.2 MG/DL (0.2-1.0)
[2017-04-22 21:02] LABS: BACTERIA 1+ /HPF; CASTS PRESENT /LPF; CRYSTALS NONE SEEN; EPITHELIAL CELLS 1+ /HPF; HYALINE CASTS 0-5 /LPF; MUCUS RARE /LPF; UCUL ADDED? NO; WHITE BLOOD CELLS 20-30 /HPF (0-5)
[2017-04-22] MEDS ORDERED: BUPROPION XL150 MG PO (22:58)
[2017-04-23] VITALS (8 sets, daily range): BP systolic 115–143; BP diastolic 61–87
[2017-04-23 05:18] LABS: METH RESISTANT S AUREUS PCR POSITIVE (NEGATIVE); PROBE CHECK PASS
[2017-04-23 06:27] LABS: HEMATOCRIT 33.3 % (36.0-46.0); MCH 32.6 PG (29.0-34.0); MCHC 33.3 G/DL (30.0-36.0); MCV 97.7 FL (83-99); PLATELET COUNT 196 K/uL (156-360); RBC DIS.WIDTH-CV 13.6 % (11.8-14.6); RBC DIS.WIDTH-SD 48.6 % (39-53); RED BLOOD COUNT 3.41 M/uL (3.80-5.20); WHITE BLOOD COUNT 10.1 K/uL (4.1-10.2)
[2017-04-23 06:34] LABS: POINT-OF-CARE METER ID UU14208753
[2017-04-23 07:26] LABS: ALKALINE PHOSPHATASE 25 IU/L (3-129); ANION GAP 15 MEQ/L (2-14); CHLORIDE 105 MEQ/L (99-109); GFR ESTIMATE (CALCULATED) 16 mL/min/; MAGNESIUM 1.1 mg/dl (1.3-2.7); POTASSIUM 3.9 MEQ/L (3.7-5.4); SAMPLE HEMOLYSIS CHECK 0; SAMPLE ICTERIC CHECK 0; SAMPLE LIPEMIA CHECK 0; SODIUM 140 MEQ/L (136-147); TOTAL BILIRUBIN 0.4 MG/DL (0.0-1.0); UREA NITROGEN (BUN) 31 mg/dL (9-23)
[2017-04-23 07:27] LABS: GLUCOSE 96 mg/dL (70-99)
[2017-04-23 11:47] LABS: POINT-OF-CARE METER ID UU14208753
[2017-04-23 17:01] LABS: POINT-OF-CARE METER ID UU14208753
[2017-04-23 21:24] LABS: POINT-OF-CARE METER ID UU14208753
[2017-04-24 03:55] VITALS: BP 122/56
[2017-04-24 07:30] LABS: POINT-OF-CARE METER ID UU14208753
[2017-04-24 07:56] VITALS: BP 136/97
[2017-04-24 08:42] LABS: HEMATOCRIT 34.1 % (36.0-46.0); MCV 97.2 FL (83-99); MEAN PLAT.VOLUME 10.1 uM^3 (9.5-12.4); PLATELET COUNT 186 K/uL (156-360); RBC DIS.WIDTH-CV 13.3 % (11.8-14.6); RBC DIS.WIDTH-SD 47.3 % (39-53); RED BLOOD COUNT 3.51 M/uL (3.80-5.20)
[2017-04-24 09:19] LABS: ALKALINE PHOSPHATASE 26 IU/L (3-129); ANION GAP 11 MEQ/L (2-14); CHLORIDE 106 MEQ/L (99-109); GFR ESTIMATE (CALCULATED) 19 mL/min/; GLUCOSE 87 mg/dL (70-99); IRON 79 MCG/DL (35-150); POTASSIUM 3.9 MEQ/L (3.7-5.4); SAMPLE HEMOLYSIS CHECK 0; SAMPLE ICTERIC CHECK 0; SAMPLE LIPEMIA CHECK 0; SODIUM 140 MEQ/L (136-147); UREA NITROGEN (BUN) 28 mg/dL (9-23)
[2017-04-24 09:20] LABS: TOTAL BILIRUBIN 0.5 MG/DL (0.0-1.0)
[2017-04-24 12:13] VITALS: BP 143/67
[2017-04-24 16:23] LABS: POINT-OF-CARE METER ID UU14208753
[2017-04-24 16:54] VITALS: BP 108/64
[2017-04-24 20:19] VITALS: BP 127/69
[2017-04-24 21:24] LABS: POINT-OF-CARE METER ID UU14208750
[2017-04-24 23:56] VITALS: BP 100/60
[2017-04-25 04:29] VITALS: BP 116/65
[2017-04-25 06:23] LABS: POINT-OF-CARE METER ID UU14208750
[2017-04-25 07:17] LABS: EOSINOPHIL (%) 2.8 % (0-5); EOSINOPHIL COUNT 0.2 K/uL (0-0.3); HEMATOCRIT 32.8 % (36.0-46.0); IMMATURE GRANULOCYTE (%) 0.3 % (0.0-0.7); INSTRUMENT ABS NEUTROPHIL CT 2.9 K/uL; LYMPHOCYTE COUNT 2.6 K/uL (1.0-2.8); MCH 33.3 PG (29.0-34.0); MCHC 34.1 G/DL (30.0-36.0); MCV 97.6 FL (83-99); MEAN PLAT.VOLUME 10.4 uM^3 (9.5-12.4); MONOCYTE (%) 11.9 % (3-12); MONOCYTE COUNT 0.8 K/uL (0-0.8); NEUTROPHIL (%) 44.6 % (45-76); NEUTROPHIL COUNT 2.9 K/uL (1.8-6.4); PLATELET COUNT 158 K/uL (156-360); RBC DIS.WIDTH-CV 13.3 % (11.8-14.6); RBC DIS.WIDTH-SD 47.6 % (39-53); RED BLOOD COUNT 3.36 M/uL (3.80-5.20); WHITE BLOOD COUNT 6.5 K/uL (4.1-10.2)
[2017-04-25 08:04] VITALS: BP 128/70
[2017-04-25 08:05] LABS: ANION GAP 11 MEQ/L (2-14); CHLORIDE 107 MEQ/L (99-109); GFR ESTIMATE (CALCULATED) 26 mL/min/; GLUCOSE 103 mg/dL (70-99); POTASSIUM 3.5 MEQ/L (3.7-5.4); SAMPLE HEMOLYSIS CHECK 0; SAMPLE ICTERIC CHECK 0; SAMPLE LIPEMIA CHECK 0; SODIUM 139 MEQ/L (136-147); UREA NITROGEN (BUN) 25 mg/dL (9-23)
[2017-04-25 12:11] LABS: POINT-OF-CARE METER ID UU14208750
[2017-04-25 12:28] VITALS: BP 120/72
[2017-04-25 15:26] VITALS: BP 130/80
[2017-04-25 16:49] LABS: POINT-OF-CARE METER ID UU14208750
[2017-04-25 19:36] VITALS: BP 115/60
[2017-04-25 21:32] LABS: POINT-OF-CARE METER ID UU14208750
[2017-04-26 00:10] VITALS: BP 115/50
[2017-04-26 03:31] VITALS: BP 120/70
[2017-04-26 07:27] LABS: ANION GAP 9 MEQ/L (2-14); CHLORIDE 110 MEQ/L (99-109); GFR ESTIMATE (CALCULATED) 40 mL/min/; GLUCOSE 102 mg/dL (70-99); POTASSIUM 3.8 MEQ/L (3.7-5.4); SAMPLE HEMOLYSIS CHECK 0; SAMPLE ICTERIC CHECK 0; SAMPLE LIPEMIA CHECK 0; SODIUM 142 MEQ/L (136-147); UREA NITROGEN (BUN) 19 mg/dL (9-23)
[2017-04-26 08:45] VITALS: BP 132/65
[2017-04-26 09:07] LABS: ANION GAP 7 MEQ/L (2-14); CHLORIDE 111 MEQ/L (99-109); POTASSIUM 3.9 MEQ/L (3.7-5.4); SAMPLE HEMOLYSIS CHECK 0; SAMPLE ICTERIC CHECK 0; SAMPLE LIPEMIA CHECK 0; SODIUM 143 MEQ/L (136-147)
[2017-04-26 09:13] LABS: GFR ESTIMATE (CALCULATED) 43 mL/min/; GLUCOSE 110 mg/dL (70-99); UREA NITROGEN (BUN) 19 mg/dL (9-23)
[2017-04-26 12:40] LABS: POINT-OF-CARE METER ID UU14208750
[2017-04-26 16:01] VITALS: BP 99/55
[2017-04-26 16:43] LABS: POINT-OF-CARE METER ID UU14208750
[2017-04-26 20:42] VITALS: BP 114/63
[2017-04-26 21:30] LABS: POINT-OF-CARE METER ID UU14208750
[2017-04-27 00:31] VITALS: BP 102/61
[2017-04-27 04:39] VITALS: BP 103/48
[2017-04-27 06:26] LABS: POINT-OF-CARE METER ID UU14208750
[2017-04-27 07:30] VITALS: BP 113/62
[2017-04-27 07:30] LABS: ANION GAP 10 MEQ/L (2-14); CHLORIDE 111 MEQ/L (99-109); GFR ESTIMATE (CALCULATED) 43 mL/min/; GLUCOSE 106 mg/dL (70-99); POTASSIUM 3.6 MEQ/L (3.7-5.4); SAMPLE HEMOLYSIS CHECK 0; SAMPLE ICTERIC CHECK 0; SAMPLE LIPEMIA CHECK 0; SODIUM 142 MEQ/L (136-147); UREA NITROGEN (BUN) 15 mg/dL (9-23)
[2017-04-27 07:40] LABS: MAGNESIUM 1.3 mg/dl (1.3-2.7)
[2017-04-27] MEDS ORDERED: Vitamin B-12 PO (08:27)
[2017-04-27] MEDS ORDERED: METOCLOPRAMIDE10 MG PO (08:28)
[2017-04-27] MEDS ORDERED: LEVAQUIN500 MG PO (08:28)
[2017-04-27] MEDS ORDERED: ELIQUIS5 MG PO (08:28)
[2017-04-27 11:44] LABS: POINT-OF-CARE METER ID UU14208750; POINT-OF-CARE USER ID PUTDRM
== END 2017-04-27 12:49 | disposition home or self-care (01) | DRG 683 ==
LOC: EME 17:37 → EDOF 23:39 → 3EAST 23:39 → 2EAST 04-24 19:54
PROVIDERS: Family Medicine; Internal Medicine
DX: N17.9 Acute kidney failure, unspecified (principal); I12.9 Hypertensive chronic kidney disease with stage 1 through stage 4 chronic kidney disease, or unspecified chronic kidney disease; I25.10 Atherosclerotic heart disease of native coronary artery without angina pectoris; E11.21 Type 2 diabetes mellitus with diabetic nephropathy; E11.22 Type 2 diabetes mellitus with diabetic chronic kidney disease; E78.5 Hyperlipidemia, unspecified; N10 Acute pyelonephritis; E86.0 Dehydration; D53.9 Nutritional anemia, unspecified; N18.4 Chronic kidney disease, stage 4 (severe); K59.00 Constipation, unspecified; F17.210 Nicotine dependence, cigarettes, uncomplicated; N18.2 Chronic kidney disease, stage 2 (mild); N26.1 Atrophy of kidney (terminal); I48.91 Unspecified atrial fibrillation; K80.20 Calculus of gallbladder without cholecystitis without obstruction; I70.8 Atherosclerosis of other arteries; E87.6 Hypokalemia; E87.2 Acidosis; E83.42 Hypomagnesemia; I70.1 Atherosclerosis of renal artery; K55.1 Chronic vascular disorders of intestine; D64.9 Anemia, unspecified; N17.0 Acute kidney failure with tubular necrosis; I25.2 Old myocardial infarction; Z86.73 Personal history of transient ischemic attack (TIA), and cerebral infarction without residual deficits; Z95.1 Presence of aortocoronary bypass graft; Z79.4 Long term (current) use of insulin; Z79.01 Long term (current) use of anticoagulants; Z82.49 Family history of ischemic heart disease and other diseases of the circulatory system; Z80.1 Family history of malignant neoplasm of trachea, bronchus and lung; Z87.891 Personal history of nicotine dependence; Z79.1 Long term (current) use of non-steroidal anti-inflammatories (NSAID)
CPT/HCPCS: 74176; 76770; 80048 91; 80053; 80069; 81003; 82306; 82607; 82746; 82948; 83540; 83690; 83735; 84100; 84466; 85025; 85027; 87040; 87077; 87086; 87186; 87493; 87641; 93975; 94799; 99281; 99285; J0692; J0696; J1650; J1815; J2405; J3475; J7030; J7050

== ENCOUNTER 2017-06-24 17:58 | Inpatient (IN) | payer OTHER, BC ==
[~2017-06-24] VITALS: Ht 165.1 cm; Wt 75.7 kg
[~2017-06-24 17:58] MED LIST changes: +BUPROPION XL150 MG PO; +LEVAQUIN500 MG PO; +METOCLOPRAMIDE10 MG PO; +Vitamin B-12 PO
[2017-06-24 19:07] LABS: HEMATOCRIT 34.1 % (36.0-46.0); MCH 32.9 PG (29.0-34.0); MCHC 33.1 G/DL (30.0-36.0); MCV 99.4 FL (83-99); MEAN PLAT.VOLUME 10.9 uM^3 (9.5-12.4); PLATELET COUNT 235 K/uL (156-360); RBC DIS.WIDTH-CV 13.9 % (11.8-14.6); RBC DIS.WIDTH-SD 51.3 % (39-53); RED BLOOD COUNT 3.43 M/uL (3.80-5.20); WHITE BLOOD COUNT 8.7 K/uL (4.1-10.2)
[2017-06-24 19:15] LABS: CHLORIDE 110 mEq/L (99-109); POTASSIUM 3.8 mEq/L (3.7-5.4); SODIUM 144 mEq/L (136-147)
[2017-06-24 19:17] LABS: GLUCOSE 128 mg/dL (70-99)
[2017-06-24 19:19] LABS: ANION GAP 16 MEQ/L (2-14); TOTAL BILIRUBIN 0.5 mg/dL (0.0-1.0)
[2017-06-24 19:21] LABS: ALKALINE PHOSPHATASE 33 IU/L (3-129); GFR ESTIMATE (CALCULATED) 32 mL/min/
[2017-06-24 19:22] LABS: UREA NITROGEN (BUN) 28 mg/dL (9-23)
[2017-06-24 20:22] LABS: ADD MIUA? YES; BILIRUBIN NEGATIVE; BLOOD NEGATIVE; COLOR YELLOW ((YELLOW)); GLUCOSE (STRIP) NEGATIVE; KETONES NEGATIVE; LEUKOCYTES SMALL; NITRITE NEGATIVE; PROTEIN (STRIP) 30; SPECIFIC GRAVITY 1.016 (1.000-1.030); UROBILINOGEN 0.2 MG/DL (0.2-1.0)
[2017-06-24 21:26] LABS: EPITHELIAL CELLS 3+ /HPF; MUCUS NONE SEEN /LPF; RED BLOOD CELLS NONE SEEN /HPF (0-5); WHITE BLOOD CELLS 0-5 /HPF (0-5)
[2017-06-24 21:27] LABS: BACTERIA 1+ /HPF; UCUL ADDED? NO
[2017-06-24 21:28] LABS: CASTS NONE SEEN /LPF; CRYSTALS NONE SEEN
[2017-06-24] MEDS ORDERED: VITAMIN B-12500 MC5 SL (23:03)
[2017-06-25 00:18] VITALS: BP 177/74
[2017-06-25 07:15] VITALS: BP 134/74
[2017-06-25 07:29] LABS: POINT-OF-CARE METER ID UU14162508
[2017-06-25 11:23] VITALS: BP 133/61
[2017-06-25 12:15] LABS: POINT-OF-CARE METER ID UU14162508
[2017-06-25 15:40] VITALS: BP 133/63
[2017-06-25 15:53] LABS: EOSINOPHIL (%) 1.6 % (0-5); EOSINOPHIL COUNT 0.1 K/uL (0-0.3); IMMATURE GRANULOCYTE (%) 0.3 % (0.0-0.7); INSTRUMENT ABS NEUTROPHIL CT 3.7 K/uL; MCH 34.1 PG (29.0-34.0); MCHC 34.5 G/DL (30.0-36.0); MCV 98.7 FL (83-99); MEAN PLAT.VOLUME 10.7 uM^3 (9.5-12.4); MONOCYTE (%) 8.1 % (3-12); MONOCYTE COUNT 0.6 K/uL (0-0.8); NEUTROPHIL (%) 49.4 % (45-76); NEUTROPHIL COUNT 3.7 K/uL (1.8-6.4); PLATELET COUNT 199 K/uL (156-360); RBC DIS.WIDTH-SD 51.3 % (39-53); RED BLOOD COUNT 3.14 M/uL (3.80-5.20); WHITE BLOOD COUNT 7.5 K/uL (4.1-10.2)
[2017-06-25 16:16] LABS: ANION GAP 9 MEQ/L (2-14); CHLORIDE 110 MEQ/L (99-109); GFR ESTIMATE (CALCULATED) 47 mL/min/; GLUCOSE 99 mg/dL (70-99); POTASSIUM 3.6 MEQ/L (3.7-5.4); SAMPLE HEMOLYSIS CHECK 0; SAMPLE ICTERIC CHECK 0; SAMPLE LIPEMIA CHECK 0; SODIUM 142 MEQ/L (136-147); UREA NITROGEN (BUN) 21 mg/dL (9-23)
[2017-06-25 16:25] LABS: POINT-OF-CARE METER ID UU14208750
[2017-06-25 20:09] VITALS: BP 120/69
[2017-06-25 21:54] LABS: POINT-OF-CARE METER ID UU14162508
[2017-06-26] VITALS (7 sets, daily range): BP systolic 123–158; BP diastolic 64–78
[2017-06-26 06:35] LABS: POINT-OF-CARE METER ID UU14208750
[2017-06-26 06:39] LABS: ANION GAP 13 MEQ/L (2-14); CHLORIDE 108 MEQ/L (99-109); GFR ESTIMATE (CALCULATED) 58 mL/min/; GLUCOSE 87 mg/dL (70-99); POTASSIUM 3.8 MEQ/L (3.7-5.4); SAMPLE HEMOLYSIS CHECK 1; SAMPLE ICTERIC CHECK 0; SAMPLE LIPEMIA CHECK 0; SODIUM 141 MEQ/L (136-147); UREA NITROGEN (BUN) 17 mg/dL (9-23)
[2017-06-26 11:56] LABS: POINT-OF-CARE METER ID UU14208750; POINT-OF-CARE USER ID PUTDRM
[2017-06-26 16:39] LABS: POINT-OF-CARE METER ID UU14208750; POINT-OF-CARE USER ID PUTDRM
[2017-06-26 21:58] LABS: POINT-OF-CARE METER ID UU14162508
[2017-06-27 07:06] LABS: POINT-OF-CARE METER ID UU14162508
[2017-06-27 07:36] VITALS: BP 135/79
[2017-06-27 08:31] LABS: ANION GAP 8 MEQ/L (2-14); CHLORIDE 110 MEQ/L (99-109); GFR ESTIMATE (CALCULATED) 58 mL/min/; POTASSIUM 3.6 MEQ/L (3.7-5.4); SAMPLE HEMOLYSIS CHECK 0; SAMPLE ICTERIC CHECK 0; SAMPLE LIPEMIA CHECK 0; SODIUM 142 MEQ/L (136-147); UREA NITROGEN (BUN) 13 mg/dL (9-23)
[2017-06-27 08:32] LABS: GLUCOSE 111 mg/dL (70-99)
[2017-06-27] MEDS ORDERED: NOVOLOG PE100 UNITS/ SC (12:01)
[2017-06-27] MEDS ORDERED: METFORMIN HCL500 MG PO (12:01)
[2017-06-27] MEDS ORDERED: LYRICA50 MG PO (12:02)
[2017-06-27] MEDS ORDERED: VALIUM5 MG PO (12:02)
[2017-06-27 12:06] VITALS: BP 154/72
[2017-06-27 12:11] LABS: POINT-OF-CARE METER ID UU14162508
[2017-06-27 15:15] VITALS: BP 132/81
[2017-06-27 16:05] LABS: POINT-OF-CARE METER ID UU14162508
== END 2017-06-27 17:50 | DRG 683 ==
LOC: EME 17:58 → EDOF 23:00 → ENRESERV 23:10 → 2EAST 06-25 00:10
PROVIDERS: Family Medicine
DX: N17.9 Acute kidney failure, unspecified (principal); E87.2 Acidosis; I69.359 Hemiplegia and hemiparesis following cerebral infarction affecting unspecified side; K52.9 Noninfective gastroenteritis and colitis, unspecified; E86.0 Dehydration; N18.9 Chronic kidney disease, unspecified; E11.22 Type 2 diabetes mellitus with diabetic chronic kidney disease; E78.5 Hyperlipidemia, unspecified; I35.0 Nonrheumatic aortic (valve) stenosis; I25.10 Atherosclerotic heart disease of native coronary artery without angina pectoris; E11.43 Type 2 diabetes mellitus with diabetic autonomic (poly)neuropathy; K31.84 Gastroparesis; D64.9 Anemia, unspecified; G47.33 Obstructive sleep apnea (adult) (pediatric); I12.9 Hypertensive chronic kidney disease with stage 1 through stage 4 chronic kidney disease, or unspecified chronic kidney disease; I65.29 Occlusion and stenosis of unspecified carotid artery; I25.2 Old myocardial infarction; I48.2 Chronic atrial fibrillation; Z79.84 Long term (current) use of oral hypoglycemic drugs; I69.391 Dysphagia following cerebral infarction; R13.10 Dysphagia, unspecified; M77.9 Enthesopathy, unspecified; Z80.1 Family history of malignant neoplasm of trachea, bronchus and lung; Z87.891 Personal history of nicotine dependence; Z90.49 Acquired absence of other specified parts of digestive tract; Z95.1 Presence of aortocoronary bypass graft; Z79.01 Long term (current) use of anticoagulants
CPT/HCPCS: 70450; 71010; 73718; 80048; 80053; 81003; 82948; 85025; 85027; 92523 GN; 92610 GN; 93005; 99281; 99285; J1815; J7030

== ENCOUNTER 2017-07-26 17:19 | Inpatient (IN) | payer OTHER, BC ==
[~2017-07-26] VITALS: Ht 167.6 cm; Wt 80.3 kg
[~2017-07-26 17:19] MED LIST changes: +METFORMIN HCL500 MG PO; +VITAMIN B-12500 MC5 SL
[2017-07-26 18:32] LABS: EOSINOPHIL (%) 1.3 % (0-5); EOSINOPHIL COUNT 0.1 K/uL (0-0.3); HEMATOCRIT 33.5 % (36.0-46.0); IMMATURE GRANULOCYTE (%) 0.4 % (0.0-0.7); INSTRUMENT ABS NEUTROPHIL CT 4.5 K/uL; MCH 33.3 PG (29.0-34.0); MCHC 33.7 G/DL (30.0-36.0); MCV 98.8 FL (83-99); MEAN PLAT.VOLUME 9.9 uM^3 (9.5-12.4); MONOCYTE (%) 9.4 % (3-12); MONOCYTE COUNT 0.8 K/uL (0-0.8); NEUTROPHIL (%) 53.3 % (45-76); NEUTROPHIL COUNT 4.5 K/uL (1.8-6.4); PLATELET COUNT 228 K/uL (156-360); RBC DIS.WIDTH-CV 13.3 % (11.8-14.6); RBC DIS.WIDTH-SD 48.3 % (39-53); RED BLOOD COUNT 3.39 M/uL (3.80-5.20); WHITE BLOOD COUNT 8.4 K/uL (4.1-10.2)
[2017-07-26 18:40] LABS: INTER. NORMALIZED RATIO 1.7; PROTHROMBIN TIME 19.2 SEC (10.2-12.9)
[2017-07-26 18:42] LABS: PTT 36.8 SEC (25-37)
[2017-07-26 18:50] LABS: CHLORIDE 105 mEq/L (99-109); POTASSIUM 4.4 mEq/L (3.7-5.4); SODIUM 142 mEq/L (136-147)
[2017-07-26 18:52] LABS: GLUCOSE 79 mg/dL (70-99)
[2017-07-26 18:53] LABS: ANION GAP 17 MEQ/L (2-14)
[2017-07-26 18:54] LABS: TOTAL BILIRUBIN 0.4 mg/dL (0.0-1.0)
[2017-07-26 18:55] LABS: ALKALINE PHOSPHATASE 32 IU/L (3-129)
[2017-07-26 18:56] LABS: GFR ESTIMATE (CALCULATED) 21 mL/min/
[2017-07-26 18:57] LABS: UREA NITROGEN (BUN) 34 mg/dL (9-23)
[2017-07-26 18:59] LABS: TROP-I INTERPRETATION NEGATIVE; TROPONIN-I < 0.01 ng/mL (0.0-0.30)
[2017-07-26 19:06] LABS: ADD MIUA? YES; BILIRUBIN NEGATIVE; BLOOD NEGATIVE; COLOR AMBER ((YELLOW)); GLUCOSE (STRIP) NEGATIVE; KETONES NEGATIVE; LEUKOCYTES TRACE; NITRITE NEGATIVE; PROTEIN (STRIP) 30; SPECIFIC GRAVITY 1.017 (1.000-1.030)
[2017-07-26 19:11] LABS: BACTERIA 1+ /HPF; EPITHELIAL CELLS 1+ /HPF; HYALINE CASTS 0-5 /LPF; MUCUS TRACE /LPF; RED BLOOD CELLS 0-5 /HPF (0-5); UCUL ADDED? YES
[2017-07-26 21:41] VITALS: BP 121/59
[2017-07-26 23:29] VITALS: BP 111/56
[2017-07-27 04:58] VITALS: BP 81/44
[2017-07-27 05:45] VITALS: BP 98/58
[2017-07-27 07:28] LABS: ANION GAP 10 MEQ/L (2-14); CHLORIDE 111 MEQ/L (99-109); GLUCOSE 89 mg/dL (70-99); POTASSIUM 4.3 MEQ/L (3.7-5.4); SAMPLE HEMOLYSIS CHECK 0; SAMPLE ICTERIC CHECK 0; SAMPLE LIPEMIA CHECK 0; SODIUM 141 MEQ/L (136-147); UREA NITROGEN (BUN) 32 mg/dL (9-23)
[2017-07-27 07:29] LABS: EOSINOPHIL (%) 2.3 % (0-5); EOSINOPHIL COUNT 0.2 K/uL (0-0.3); HEMATOCRIT 30.9 % (36.0-46.0); IMMATURE GRANULOCYTE (%) 0.3 % (0.0-0.7); INSTRUMENT ABS NEUTROPHIL CT 4.3 K/uL; LYMPHOCYTE COUNT 3.3 K/uL (1.0-2.8); MCH 32.9 PG (29.0-34.0); MCHC 31.4 G/DL (30.0-36.0); MONOCYTE (%) 10.9 % (3-12); NEUTROPHIL (%) 48.5 % (45-76); NEUTROPHIL COUNT 4.3 K/uL (1.8-6.4); PLATELET COUNT 194 K/uL (156-360); RBC DIS.WIDTH-CV 13.2 % (11.8-14.6); RBC DIS.WIDTH-SD 50.9 % (39-53); RED BLOOD COUNT 2.95 M/uL (3.80-5.20); WHITE BLOOD COUNT 8.8 K/uL (4.1-10.2)
[2017-07-27 07:32] LABS: MCV 104.7 FL (83-99)
[2017-07-27 07:34] LABS: GFR ESTIMATE (CALCULATED) 30 mL/min/
[2017-07-27 09:33] VITALS: BP 119/56
[2017-07-27 12:24] VITALS: BP 141/68
[2017-07-27 17:36] VITALS: BP 119/58
[2017-07-27 19:51] VITALS: BP 108/53
[2017-07-27 21:21] LABS: POINT-OF-CARE METER ID UU14117124
[2017-07-28 00:10] VITALS: BP 120/64
[2017-07-28 06:02] VITALS: BP 145/70
[2017-07-28 07:23] LABS: EOSINOPHIL (%) 3.6 % (0-5); EOSINOPHIL COUNT 0.2 K/uL (0-0.3); HEMATOCRIT 28.2 % (36.0-46.0); IMMATURE GRANULOCYTE (%) 0.3 % (0.0-0.7); INSTRUMENT ABS NEUTROPHIL CT 3.1 K/uL; MCH 33.5 PG (29.0-34.0); MCHC 32.6 G/DL (30.0-36.0); MCV 102.5 FL (83-99); MONOCYTE COUNT 0.5 K/uL (0-0.8); NEUTROPHIL (%) 52.4 % (45-76); NEUTROPHIL COUNT 3.1 K/uL (1.8-6.4); PLATELET COUNT 184 K/uL (156-360); RBC DIS.WIDTH-CV 13.3 % (11.8-14.6); RBC DIS.WIDTH-SD 50.2 % (39-53); RED BLOOD COUNT 2.75 M/uL (3.80-5.20); WHITE BLOOD COUNT 5.9 K/uL (4.1-10.2)
[2017-07-28 07:39] VITALS: BP 105/57
[2017-07-28 07:49] LABS: ANION GAP 10 MEQ/L (2-14); CHLORIDE 113 MEQ/L (99-109); GFR ESTIMATE (CALCULATED) 47 mL/min/; GLUCOSE 103 mg/dL (70-99); POTASSIUM 3.9 MEQ/L (3.7-5.4); SAMPLE HEMOLYSIS CHECK 0; SAMPLE ICTERIC CHECK 0; SAMPLE LIPEMIA CHECK 0; SODIUM 145 MEQ/L (136-147); UREA NITROGEN (BUN) 19 mg/dL (9-23)
[2017-07-28 11:24] LABS: POINT-OF-CARE METER ID UU14117124
[2017-07-28 12:10] VITALS: BP 115/72
[2017-07-28 15:38] VITALS: BP 129/76
[2017-07-28 16:21] LABS: POINT-OF-CARE METER ID UU14208753
[2017-07-28 20:06] VITALS: BP 92/54
[2017-07-29] VITALS (7 sets, daily range): BP systolic 100–142; BP diastolic 58–82
[2017-07-29 06:15] LABS: EOSINOPHIL (%) 3.1 % (0-5); EOSINOPHIL COUNT 0.2 K/uL (0-0.3); HEMATOCRIT 26.9 % (36.0-46.0); IMMATURE GRANULOCYTE (%) 0.5 % (0.0-0.7); INSTRUMENT ABS NEUTROPHIL CT 3.2 K/uL; LYMPHOCYTE COUNT 2.4 K/uL (1.0-2.8); MCHC 33.8 G/DL (30.0-36.0); MCV 100.4 FL (83-99); MEAN PLAT.VOLUME 9.8 uM^3 (9.5-12.4); MONOCYTE (%) 9.6 % (3-12); MONOCYTE COUNT 0.6 K/uL (0-0.8); NEUTROPHIL (%) 49.4 % (45-76); NEUTROPHIL COUNT 3.2 K/uL (1.8-6.4); PLATELET COUNT 203 K/uL (156-360); RBC DIS.WIDTH-CV 13.2 % (11.8-14.6); RBC DIS.WIDTH-SD 49.5 % (39-53); RED BLOOD COUNT 2.68 M/uL (3.80-5.20); WHITE BLOOD COUNT 6.4 K/uL (4.1-10.2)
[2017-07-29 06:26] LABS: POINT-OF-CARE METER ID UU14117124; POINT-OF-CARE USER ID 606021424
[2017-07-29 07:03] LABS: ANION GAP 9 MEQ/L (2-14); CHLORIDE 111 MEQ/L (99-109); GFR ESTIMATE (CALCULATED) 58 mL/min/; GLUCOSE 108 mg/dL (70-99); POTASSIUM 3.4 MEQ/L (3.7-5.4); SAMPLE HEMOLYSIS CHECK 0; SAMPLE ICTERIC CHECK 0; SAMPLE LIPEMIA CHECK 0; SODIUM 142 MEQ/L (136-147); UREA NITROGEN (BUN) 13 mg/dL (9-23)
[2017-07-29 11:31] LABS: POINT-OF-CARE METER ID UU14188577
[2017-07-29 16:35] LABS: POINT-OF-CARE METER ID UU14208753
[2017-07-29 21:41] LABS: POINT-OF-CARE METER ID UU14117124
[2017-07-30 04:09] VITALS: BP 111/70
[2017-07-30 06:26] LABS: POINT-OF-CARE METER ID UU14208753
[2017-07-30 06:58] LABS: EOSINOPHIL (%) 4.6 % (0-5); EOSINOPHIL COUNT 0.3 K/uL (0-0.3); HEMATOCRIT 28.2 % (36.0-46.0); IMMATURE GRANULOCYTE (%) 0.2 % (0.0-0.7); INSTRUMENT ABS NEUTROPHIL CT 2.8 K/uL; LYMPHOCYTE COUNT 2.7 K/uL (1.0-2.8); MCH 32.5 PG (29.0-34.0); MCHC 32.3 G/DL (30.0-36.0); MCV 100.7 FL (83-99); MEAN PLAT.VOLUME 9.9 uM^3 (9.5-12.4); MONOCYTE (%) 8.2 % (3-12); MONOCYTE COUNT 0.5 K/uL (0-0.8); NEUTROPHIL (%) 44.7 % (45-76); NEUTROPHIL COUNT 2.8 K/uL (1.8-6.4); PLATELET COUNT 192 K/uL (156-360); RBC DIS.WIDTH-CV 13.3 % (11.8-14.6); RBC DIS.WIDTH-SD 49.4 % (39-53); WHITE BLOOD COUNT 6.3 K/uL (4.1-10.2)
[2017-07-30 07:25] LABS: ANION GAP 10 MEQ/L (2-14); CHLORIDE 110 MEQ/L (99-109); GFR ESTIMATE (CALCULATED) 58 mL/min/; GLUCOSE 109 mg/dL (70-99); POTASSIUM 3.7 MEQ/L (3.7-5.4); SAMPLE HEMOLYSIS CHECK 0; SAMPLE ICTERIC CHECK 0; SAMPLE LIPEMIA CHECK 0; SODIUM 145 MEQ/L (136-147); UREA NITROGEN (BUN) 11 mg/dL (9-23)
[2017-07-30 07:43] VITALS: BP 115/64
[2017-07-30 11:49] LABS: POINT-OF-CARE METER ID UU14188577
[2017-07-30 12:21] VITALS: BP 134/80
[2017-07-30 16:13] VITALS: BP 130/73
[2017-07-30 16:46] LABS: POINT-OF-CARE METER ID UU14208753
[2017-07-30 19:49] VITALS: BP 114/70
[2017-07-30 21:35] LABS: POINT-OF-CARE METER ID UU14117124
[2017-07-30 23:55] VITALS: BP 107/57
[2017-07-31 04:10] VITALS: BP 121/60
[2017-07-31 06:37] LABS: POINT-OF-CARE METER ID UU14117124
[2017-07-31 07:49] VITALS: BP 93/55
[2017-07-31 11:34] VITALS: BP 111/55
[2017-07-31 12:43] LABS: POINT-OF-CARE METER ID UU14117124
[2017-07-31 16:47] VITALS: BP 119/64
[2017-07-31 17:19] LABS: POINT-OF-CARE METER ID UU14188577
[2017-07-31 19:29] VITALS: BP 104/55
[2017-07-31 21:37] LABS: POINT-OF-CARE METER ID UU14208753
[2017-07-31 23:45] VITALS: BP 114/59
[2017-08-01 03:04] VITALS: BP 112/53
[2017-08-01 06:49] LABS: POINT-OF-CARE METER ID UU14188577
[2017-08-01 07:36] VITALS: BP 121/69
[2017-08-01 11:39] VITALS: BP 104/65
[2017-08-01 12:03] LABS: POINT-OF-CARE METER ID UU14208753
[2017-08-01 16:41] VITALS: BP 120/64
[2017-08-01 17:04] LABS: POINT-OF-CARE METER ID UU14188577
[2017-08-01 19:14] VITALS: BP 104/57
[2017-08-01 21:36] LABS: POINT-OF-CARE METER ID UU14208753
[2017-08-01 23:01] VITALS: BP 116/63
[2017-08-02 05:09] VITALS: BP 110/54
[2017-08-02 06:24] LABS: POINT-OF-CARE METER ID UU14188577
[2017-08-02 07:32] LABS: EOSINOPHIL (%) 5.4 % (0-5); EOSINOPHIL COUNT 0.4 K/uL (0-0.3); HEMATOCRIT 30.8 % (36.0-46.0); IMMATURE GRANULOCYTE (%) 0.3 % (0.0-0.7); INSTRUMENT ABS NEUTROPHIL CT 2.8 K/uL; LYMPHOCYTE COUNT 2.6 K/uL (1.0-2.8); MCH 32.6 PG (29.0-34.0); MCHC 32.5 G/DL (30.0-36.0); MCV 100.3 FL (83-99); MONOCYTE (%) 10.8 % (3-12); MONOCYTE COUNT 0.7 K/uL (0-0.8); NEUTROPHIL (%) 43.7 % (45-76); NEUTROPHIL COUNT 2.8 K/uL (1.8-6.4); PLATELET COUNT 222 K/uL (156-360); RBC DIS.WIDTH-CV 13.2 % (11.8-14.6); RBC DIS.WIDTH-SD 48.5 % (39-53); RED BLOOD COUNT 3.07 M/uL (3.80-5.20); WHITE BLOOD COUNT 6.5 K/uL (4.1-10.2)
[2017-08-02 07:59] LABS: ANION GAP 11 MEQ/L (2-14); CHLORIDE 104 MEQ/L (99-109); GFR ESTIMATE (CALCULATED) 52 mL/min/; GLUCOSE 123 mg/dL (70-99); POTASSIUM 3.8 MEQ/L (3.7-5.4); SAMPLE HEMOLYSIS CHECK 0; SAMPLE ICTERIC CHECK 0; SAMPLE LIPEMIA CHECK 0; SODIUM 142 MEQ/L (136-147); UREA NITROGEN (BUN) 22 mg/dL (9-23)
[2017-08-02 09:30] VITALS: BP 129/75
[2017-08-02 11:41] VITALS: BP 125/64
[2017-08-02 11:43] LABS: POINT-OF-CARE METER ID UU14188577
[2017-08-02 16:24] VITALS: BP 131/71
[2017-08-02 16:37] LABS: POINT-OF-CARE METER ID UU14208753
[2017-08-02 20:27] VITALS: BP 104/55
[2017-08-03 00:25] VITALS: BP 107/66
[2017-08-03 01:04] LABS: POINT-OF-CARE METER ID UU14117124
[2017-08-03 04:39] VITALS: BP 110/58
[2017-08-03 06:52] LABS: POINT-OF-CARE METER ID UU14188577
[2017-08-03 07:15] VITALS: BP 127/83
[2017-08-03 11:36] LABS: POINT-OF-CARE METER ID UU14117124
[2017-08-03 12:30] VITALS: BP 102/58
[2017-08-03] MEDS ORDERED: DUONEB 2.5-0.5 M3 ML AEROSOL (12:34)
[2017-08-03] MEDS ORDERED: ASPIRIN81 M2 PO (12:35)
[2017-08-03] MEDS ORDERED: NOVOLOG PE100 UNITS/ SC (12:35)
[2017-08-03] MEDS ORDERED: LOPRESSOR25 MG PO (12:35)
== END 2017-08-03 13:11 | DRG 872 ==
LOC: EME 17:19 → EDOF 19:46 → 3EAST 19:46 → ENRESERV 19:55 → 3EAST 21:07
PROVIDERS: Emergency Medicine; Family Medicine
DX: A41.9 Sepsis, unspecified organism (principal); N17.9 Acute kidney failure, unspecified; E87.2 Acidosis; N39.0 Urinary tract infection, site not specified; F33.9 Major depressive disorder, recurrent, unspecified; E11.22 Type 2 diabetes mellitus with diabetic chronic kidney disease; I12.9 Hypertensive chronic kidney disease with stage 1 through stage 4 chronic kidney disease, or unspecified chronic kidney disease; E78.5 Hyperlipidemia, unspecified; E86.0 Dehydration; R65.20 Severe sepsis without septic shock; I95.9 Hypotension, unspecified; F17.210 Nicotine dependence, cigarettes, uncomplicated; I25.10 Atherosclerotic heart disease of native coronary artery without angina pectoris; I35.0 Nonrheumatic aortic (valve) stenosis; N18.2 Chronic kidney disease, stage 2 (mild); I48.91 Unspecified atrial fibrillation; I65.29 Occlusion and stenosis of unspecified carotid artery; E66.9 Obesity, unspecified; B95.2 Enterococcus as the cause of diseases classified elsewhere; J44.9 Chronic obstructive pulmonary disease, unspecified; R09.02 Hypoxemia; G47.30 Sleep apnea, unspecified; F41.9 Anxiety disorder, unspecified; Z86.73 Personal history of transient ischemic attack (TIA), and cerebral infarction without residual deficits; Z95.1 Presence of aortocoronary bypass graft; Z90.49 Acquired absence of other specified parts of digestive tract; I25.2 Old myocardial infarction; Z99.81 Dependence on supplemental oxygen; Z68.28 Body mass index [BMI] 28.0-28.9, adult; Z87.440 Personal history of urinary (tract) infections
CPT/HCPCS: 71010; 80048; 80053; 81003; 82948; 83605; 84484; 85025; 85610; 85730; 87040; 87077; 87086; 87186; 93005; 94799; 97530 GO; 97530 GP; 99202; 99281; 99285; J0696; J1815; J1940; J7030; J7050; S0028

== ENCOUNTER 2017-08-03 11:42 | Inpatient (IN) | payer OTHER, BC ==
[~2017-08-03] VITALS: Ht 167.6 cm; Wt 85.6 kg
[2017-08-03] MEDS ORDERED: DUONEB 2.5-0.5 M3 ML AEROSOL (12:34)
[2017-08-03] MEDS ORDERED: LOPRESSOR25 MG PO (12:35)
[2017-08-03] MEDS ORDERED: NOVOLOG PE100 UNITS/ SC (12:35)
[2017-08-03] MEDS ORDERED: ASPIRIN81 M2 PO (12:35)
[2017-08-03 13:33] VITALS: BP 103/55
[2017-08-03 15:23] VITALS: BP 107/62
[2017-08-03 16:26] LABS: POINT-OF-CARE METER ID UU13113720
[2017-08-03 21:18] LABS: POINT-OF-CARE METER ID UU13113720
[2017-08-04 00:07] VITALS: BP 97/60
[2017-08-04 05:53] VITALS: BP 115/53
[2017-08-04 07:07] LABS: HEMATOCRIT 29.7 % (36.0-46.0); MCH 34.4 PG (29.0-34.0); MCHC 33.7 G/DL (30.0-36.0); MCV 102.1 FL (83-99); MEAN PLAT.VOLUME 9.9 uM^3 (9.5-12.4); PLATELET COUNT 228 K/uL (156-360); RBC DIS.WIDTH-CV 13.2 % (11.8-14.6); RBC DIS.WIDTH-SD 49.2 % (39-53); RED BLOOD COUNT 2.91 M/uL (3.80-5.20); WHITE BLOOD COUNT 6.6 K/uL (4.1-10.2)
[2017-08-04 07:28] LABS: ALKALINE PHOSPHATASE 28 IU/L (3-129); ANION GAP 8 MEQ/L (2-14); CHLORIDE 102 MEQ/L (99-109); GFR ESTIMATE (CALCULATED) 43 mL/min/; GLUCOSE 118 mg/dL (70-99); POTASSIUM 4.2 MEQ/L (3.7-5.4); SAMPLE HEMOLYSIS CHECK 0; SAMPLE ICTERIC CHECK 0; SAMPLE LIPEMIA CHECK 0; SODIUM 141 MEQ/L (136-147); TOTAL BILIRUBIN 0.4 MG/DL (0.0-1.0); UREA NITROGEN (BUN) 22 mg/dL (9-23)
[2017-08-04 08:05] LABS: POINT-OF-CARE METER ID UU14174215
[2017-08-04 11:43] LABS: POINT-OF-CARE METER ID UU13113720; POINT-OF-CARE USER ID AHSSSJB31
[2017-08-04 15:10] VITALS: BP 145/68
[2017-08-04 16:07] LABS: POINT-OF-CARE METER ID UU13113720
[2017-08-05 05:22] VITALS: BP 96/53
[2017-08-05 07:44] LABS: POINT-OF-CARE METER ID UU13113720; POINT-OF-CARE USER ID AHSSSJB31
[2017-08-05 09:00] VITALS: BP 113/64
[2017-08-05 12:13] LABS: POINT-OF-CARE METER ID UU14174215; POINT-OF-CARE USER ID AHSSSJB31
[2017-08-05 16:10] LABS: POINT-OF-CARE METER ID UU14174215; POINT-OF-CARE USER ID 610211320
[2017-08-05 16:11] VITALS: BP 95/52
[2017-08-05 22:40] LABS: POINT-OF-CARE METER ID UU14174215; POINT-OF-CARE USER ID 610211320
[2017-08-06 05:37] VITALS: BP 144/74
[2017-08-06 08:18] LABS: POINT-OF-CARE METER ID UU14174215; POINT-OF-CARE USER ID AHSSSJB31
[2017-08-06 12:03] LABS: POINT-OF-CARE METER ID UU14174215; POINT-OF-CARE USER ID AHSSSJB31
[2017-08-06 15:28] VITALS: BP 134/65
[2017-08-06 16:31] LABS: POINT-OF-CARE METER ID UU14174215
[2017-08-06 21:31] LABS: POINT-OF-CARE METER ID UU14174215
[2017-08-07 05:38] VITALS: BP 139/73
[2017-08-07 07:10] LABS: POINT-OF-CARE METER ID UU14174215; POINT-OF-CARE USER ID AHSSSJB31
[2017-08-07 11:23] LABS: POINT-OF-CARE METER ID UU14174215; POINT-OF-CARE USER ID AHSSSJB31
[2017-08-07 15:32] VITALS: BP 145/64
[2017-08-07 16:37] LABS: POINT-OF-CARE METER ID UU14174215
[2017-08-07 21:15] LABS: POINT-OF-CARE METER ID UU14174215
[2017-08-08 05:31] VITALS: BP 102/60
[2017-08-08 06:56] LABS: POINT-OF-CARE METER ID UU14174215; POINT-OF-CARE USER ID ENVGAF
[2017-08-08 11:43] LABS: POINT-OF-CARE METER ID UU14174215
[2017-08-08 15:21] VITALS: BP 121/66
[2017-08-08 15:55] LABS: POINT-OF-CARE METER ID UU13113720
[2017-08-08 21:21] LABS: POINT-OF-CARE METER ID UU14174215
[2017-08-09 05:20] VITALS: BP 98/62
[2017-08-09 06:57] LABS: POINT-OF-CARE METER ID UU14174215; POINT-OF-CARE USER ID ENVGAF
[2017-08-09 10:03] VITALS: BP 118/67
[2017-08-09 11:08] LABS: POINT-OF-CARE METER ID UU14174215; POINT-OF-CARE USER ID ENVGAF
[2017-08-09 15:53] VITALS: BP 102/60
[2017-08-09 16:45] LABS: POINT-OF-CARE METER ID UU13113720
[2017-08-09 21:00] LABS: POINT-OF-CARE METER ID UU13113720
[2017-08-10 05:02] VITALS: BP 102/53
[2017-08-10 07:17] LABS: POINT-OF-CARE METER ID UU13113720; POINT-OF-CARE USER ID AHSSSJB31
[2017-08-10 11:56] LABS: POINT-OF-CARE METER ID UU13113720; POINT-OF-CARE USER ID AHSSSJB31
[2017-08-10 15:04] VITALS: BP 119/62
[2017-08-10 16:14] LABS: POINT-OF-CARE METER ID UU14174215
[2017-08-10 21:33] LABS: POINT-OF-CARE METER ID UU13113720
[2017-08-11 05:03] VITALS: BP 111/53
[2017-08-11 07:00] LABS: POINT-OF-CARE METER ID UU14174215; POINT-OF-CARE USER ID ENVGAF
[2017-08-11 11:06] LABS: POINT-OF-CARE METER ID UU14174215
[2017-08-11 15:03] VITALS: BP 131/70
[2017-08-11 16:29] LABS: POINT-OF-CARE METER ID UU14174215
[2017-08-11 21:17] LABS: POINT-OF-CARE METER ID UU13113720
[2017-08-12 05:40] VITALS: BP 97/54
[2017-08-12 07:10] LABS: POINT-OF-CARE METER ID UU13113720
[2017-08-12 11:14] LABS: POINT-OF-CARE METER ID UU13113720
[2017-08-12 15:21] VITALS: BP 105/54
[2017-08-12 15:56] LABS: POINT-OF-CARE METER ID UU14174215
[2017-08-12 16:34] LABS: POINT-OF-CARE METER ID UU14174215
[2017-08-12 16:58] LABS: POINT-OF-CARE METER ID UU14174215
[2017-08-12 21:01] LABS: POINT-OF-CARE METER ID UU14174215
[2017-08-13 06:00] VITALS: BP 99/52
[2017-08-13 07:22] LABS: POINT-OF-CARE METER ID UU14174215
[2017-08-13] MEDS ORDERED: BUPROPION XL300 MG PO (10:53)
[2017-08-13 11:52] LABS: POINT-OF-CARE METER ID UU13113720
== END 2017-08-13 14:10 | DRG 945 ==
LOC: 3WEST 11:42
PROVIDERS: Physical Medicine & Rehabilitation Pain Medicine
PROC: F07M0ZZ Range of Motion and Joint Mobility Treatment of Musculoskeletal System - Whole Body (ICD-10-PCS; principal; 2017-08-03)
DX: R53.81 Other malaise (principal); E78.5 Hyperlipidemia, unspecified; E86.0 Dehydration; R26.9 Unspecified abnormalities of gait and mobility; F32.1 Major depressive disorder, single episode, moderate; I25.10 Atherosclerotic heart disease of native coronary artery without angina pectoris; I12.9 Hypertensive chronic kidney disease with stage 1 through stage 4 chronic kidney disease, or unspecified chronic kidney disease; N17.9 Acute kidney failure, unspecified; E11.22 Type 2 diabetes mellitus with diabetic chronic kidney disease; I70.1 Atherosclerosis of renal artery; J44.9 Chronic obstructive pulmonary disease, unspecified; N18.4 Chronic kidney disease, stage 4 (severe); G47.33 Obstructive sleep apnea (adult) (pediatric); J84.10 Pulmonary fibrosis, unspecified; J98.11 Atelectasis; N39.0 Urinary tract infection, site not specified; M79.671 Pain in right foot; R09.02 Hypoxemia; D64.9 Anemia, unspecified; I95.9 Hypotension, unspecified; I48.91 Unspecified atrial fibrillation; R91.1 Solitary pulmonary nodule; I35.0 Nonrheumatic aortic (valve) stenosis; Z79.82 Long term (current) use of aspirin; Z87.891 Personal history of nicotine dependence; Z86.73 Personal history of transient ischemic attack (TIA), and cerebral infarction without residual deficits; Z90.710 Acquired absence of both cervix and uterus; Z80.1 Family history of malignant neoplasm of trachea, bronchus and lung; Z87.440 Personal history of urinary (tract) infections
CPT/HCPCS: 71250; 73630; 80053; 82948; 85027; 94660; 94799; 97110 GO; 97530 GP; 99202

== ENCOUNTER 2017-12-10 09:12 | Inpatient (IN) | payer OTHER, BC ==
[~2017-12-10] VITALS: Ht 165.1 cm; Wt 77.1 kg
[~2017-12-10 09:12] MED LIST changes: +ASPIRIN81 M2 PO; +BUPROPION XL300 MG PO; +CRANBERRY450 M1 PO; +JANUVIA100 MG PO; +LOPRESSOR25 MG PO; +TOPROL XL50 MG PO; +VITAMIN C1000 MG PO; +WELLBUTRIN XL150 MG PO
[2017-12-10 10:16] VITALS: BP 141/65
[2017-12-10 14:37] VITALS: BP 143/68
[2017-12-10 15:30] LABS: HEMATOCRIT 32.4 % (36.0-46.0); HEMOGLOBIN 10.4 G/DL (11.9-15.5); MCH 32.4 PG (29.0-34.0); MCHC 32.1 G/DL (30.0-36.0); MCV 100.9 FL (83-99); RBC DIS.WIDTH-CV 14.8 % (11.8-14.6); RBC DIS.WIDTH-SD 55.2 % (39-53); RED BLOOD COUNT 3.21 M/uL (3.80-5.20); WHITE BLOOD COUNT 9.1 K/uL (4.1-10.2)
[2017-12-10 15:33] LABS: PLATELET COUNT 322 K/uL (156-360)
[2017-12-10 19:10] VITALS: BP 139/72
[2017-12-10 23:05] VITALS: BP 130/79
[2017-12-11 03:30] VITALS: BP 140/78
[2017-12-11 07:27] VITALS: BP 97/48
[2017-12-11 15:30] VITALS: BP 134/64
[2017-12-11 19:44] VITALS: BP 110/56
[2017-12-11 23:15] VITALS: BP 131/60
[2017-12-12 03:05] VITALS: BP 112/56
[2017-12-12 08:00] VITALS: BP 126/58
[2017-12-12 15:16] VITALS: BP 130/68
[2017-12-12 15:48] LABS: BASOPHIL (%) 0.2 % (0-1); EOSINOPHIL (%) 1.1 % (0-5); EOSINOPHIL COUNT 0.1 K/uL (0-0.3); HEMATOCRIT 27.9 % (36.0-46.0); HEMOGLOBIN 8.9 G/DL (11.9-15.5); IMMATURE GRANULOCYTE (%) 0.3 % (0.0-0.7); LYMPHOCYTE (%) 29.4 % (15-42); LYMPHOCYTE COUNT 2.6 K/uL (1.0-2.8); MCH 32.1 PG (29.0-34.0); MCHC 31.9 G/DL (30.0-36.0); MCV 100.7 FL (83-99); MONOCYTE (%) 12.4 % (3-12); MONOCYTE COUNT 1.1 K/uL (0-0.8); NEUTROPHIL (%) 56.6 % (45-76); PLATELET COUNT 301 K/uL (156-360); RBC DIS.WIDTH-CV 15.1 % (11.8-14.6); RBC DIS.WIDTH-SD 56.1 % (39-53); RED BLOOD COUNT 2.77 M/uL (3.80-5.20); WHITE BLOOD COUNT 8.9 K/uL (4.1-10.2)
[2017-12-12 16:10] LABS: CHLORIDE 106 MEQ/L (99-109); CREATININE 1.5 MG/DL (0.6-1.3); GFR ESTIMATE (CALCULATED) 36 mL/min/; GLUCOSE 96 mg/dL (70-99); POTASSIUM 4.7 MEQ/L (3.7-5.4); SODIUM 140 MEQ/L (136-147); UREA NITROGEN (BUN) 32 mg/dL (9-23)
[2017-12-13 00:11] VITALS: BP 156/68
[2017-12-13 08:00] VITALS: BP 142/76
[2017-12-13 11:34] VITALS: BP 118/64
[2017-12-13 15:20] VITALS: BP 112/62
[2017-12-13 20:14] VITALS: BP 123/58
[2017-12-14 00:10] VITALS: BP 94/50
[2017-12-14 06:40] LABS: BASOPHIL (%) 0.3 % (0-1); EOSINOPHIL (%) 2.7 % (0-5); EOSINOPHIL COUNT 0.2 K/uL (0-0.3); HEMATOCRIT 27.9 % (36.0-46.0); HEMOGLOBIN 9.1 G/DL (11.9-15.5); IMMATURE GRANULOCYTE (%) 0.3 % (0.0-0.7); LYMPHOCYTE (%) 38.5 % (15-42); LYMPHOCYTE COUNT 2.8 K/uL (1.0-2.8); MCH 32.5 PG (29.0-34.0); MCHC 32.6 G/DL (30.0-36.0); MCV 99.6 FL (83-99); NEUTROPHIL (%) 44.2 % (45-76); NEUTROPHIL COUNT 3.2 K/uL (1.8-6.4); PLATELET COUNT 288 K/uL (156-360); RBC DIS.WIDTH-CV 14.7 % (11.8-14.6); RBC DIS.WIDTH-SD 54.3 % (39-53); WHITE BLOOD COUNT 7.2 K/uL (4.1-10.2)
[2017-12-14 07:03] LABS: CHLORIDE 103 MEQ/L (99-109); CREATININE 1.6 MG/DL (0.6-1.3); GFR ESTIMATE (CALCULATED) 34 mL/min/; GLUCOSE 103 mg/dL (70-99); POTASSIUM 4.5 MEQ/L (3.7-5.4); SODIUM 141 MEQ/L (136-147); UREA NITROGEN (BUN) 31 mg/dL (9-23)
[2017-12-14 07:10] VITALS: BP 91/52
[2017-12-14 11:51] VITALS: BP 107/55
[2017-12-14 16:11] VITALS: BP 108/60
[2017-12-14 23:50] VITALS: BP 110/69
[2017-12-15 07:09] VITALS: BP 102/51
[2017-12-15] MEDS ORDERED: DUONEB 2.5-0.5 M3 ML AEROSOL (11:38)
[2017-12-15] MEDS ORDERED: TYLENOL REGULA325 MG PO (11:39)
[2017-12-15] MEDS ORDERED: BISAC-EVAC10 MG PR (11:40)
[2017-12-15] MEDS ORDERED: DOCUSATE SODIU100 MG PO (11:40)
[2017-12-15] MEDS ORDERED: [UNRECOGNIZED DRUG - OTHER] PR (11:40)
[2017-12-15] MEDS ORDERED: AUGMENTIN875 MG PO (11:41)
[2017-12-15] MEDS ORDERED: NOVOLOG 10100 UNITS/ SC (11:41)
[2017-12-15] MEDS ORDERED: OXYCODONE HCL5 MG PO ×2 (11:42)
[2017-12-15] MEDS ORDERED: VALIUM5 MG PO (11:42)
[2017-12-15] MEDS ORDERED: LYRICA50 MG PO (11:42)
== END 2017-12-15 14:20 | DRG 981 ==
LOC: SDC 09:12 → 2SOUTH 12:44 → 2EASTP 12:44 → ENRESERV 12:45 → 2EASTP 14:23 → SDC 18:00 → ENRESERV 12-11 22:10 → 2EAST 12-11 22:28
PROVIDERS: Family Medicine; Podiatrist Foot & Ankle Surgery
PROC: 0LQN0ZZ Repair Right Lower Leg Tendon, Open Approach (ICD-10-PCS; principal; 2017-12-10)
PROC: 3E0T3BZ Introduction of Anesthetic Agent into Peripheral Nerves and Plexi, Percutaneous Approach (ICD-10-PCS; principal; 2017-12-10)
PROC: 0QBL0ZZ Excision of Right Tarsal, Open Approach (ICD-10-PCS; principal; 2017-12-10)
PROC: 0LMN0ZZ Reattachment of Right Lower Leg Tendon, Open Approach (ICD-10-PCS; principal; 2017-12-10)
DX: J44.0 Chronic obstructive pulmonary disease with (acute) lower respiratory infection (principal); J18.9 Pneumonia, unspecified organism; N17.9 Acute kidney failure, unspecified; D64.9 Anemia, unspecified; I95.9 Hypotension, unspecified; I13.0 Hypertensive heart and chronic kidney disease with heart failure and stage 1 through stage 4 chronic kidney disease, or unspecified chronic kidney disease; I50.9 Heart failure, unspecified; E11.22 Type 2 diabetes mellitus with diabetic chronic kidney disease; N18.9 Chronic kidney disease, unspecified; M76.61 Achilles tendinitis, right leg; M77.31 Calcaneal spur, right foot; G47.33 Obstructive sleep apnea (adult) (pediatric); I48.91 Unspecified atrial fibrillation; I25.10 Atherosclerotic heart disease of native coronary artery without angina pectoris; E78.5 Hyperlipidemia, unspecified; E66.9 Obesity, unspecified; I65.29 Occlusion and stenosis of unspecified carotid artery; Z96.651 Presence of right artificial knee joint; Z79.82 Long term (current) use of aspirin; Z79.4 Long term (current) use of insulin; Z95.1 Presence of aortocoronary bypass graft; Z95.5 Presence of coronary angioplasty implant and graft; Z99.81 Dependence on supplemental oxygen; Z87.891 Personal history of nicotine dependence; I25.2 Old myocardial infarction; I69.321 Dysphasia following cerebral infarction; Z68.28 Body mass index [BMI] 28.0-28.9, adult
CPT/HCPCS: 71046; 73650; 76000; 80048; 82948; 83880; 85025; 85027; 87641; 94640; 94799; 97530 GO; 97530 GP; 99202; C1713; G0378; G8978 GP CK; G8979 GP CI; G8987 GO CM; G8988 GO CJ; J0456; J0690; J0696; J1100; J1815; J2250; J2405; J2710; J2795; J3010; J7120; S0020

== ENCOUNTER 2017-12-16 10:03 | Inpatient (IN) | payer OTHER, BC ==
[~2017-12-16] VITALS: Ht 165.1 cm; Wt 80.8 kg
[~2017-12-16 10:03] MED LIST changes: +AUGMENTIN875 MG PO; +BISAC-EVAC10 MG PR; +DOCUSATE SODIU100 MG PO; +NOVOLOG 10100 UNITS/ SC; +OXYCODONE HCL5 MG PO; +[UNRECOGNIZED DRUG - OTHER] PR
[2017-12-16 10:15] LABS: BASOPHIL (%) 0.2 % (0-1); EOSINOPHIL (%) 1.4 % (0-5); EOSINOPHIL COUNT 0.1 K/uL (0-0.3); HEMATOCRIT 29.2 % (36.0-46.0); HEMOGLOBIN 9.7 G/DL (11.9-15.5); IMMATURE GRANULOCYTE (%) 0.1 % (0.0-0.7); LYMPHOCYTE (%) 22.9 % (15-42); MCH 32.6 PG (29.0-34.0); MCHC 33.2 G/DL (30.0-36.0); MONOCYTE COUNT 1.1 K/uL (0-0.8); NEUTROPHIL (%) 62.4 % (45-76); NEUTROPHIL COUNT 5.4 K/uL (1.8-6.4); PLATELET COUNT 246 K/uL (156-360); RBC DIS.WIDTH-CV 14.6 % (11.8-14.6); RBC DIS.WIDTH-SD 53.3 % (39-53); RED BLOOD COUNT 2.98 M/uL (3.80-5.20); WHITE BLOOD COUNT 8.7 K/uL (4.1-10.2)
[2017-12-16 10:23] LABS: INTER. NORMALIZED RATIO 1.9
[2017-12-16 10:26] LABS: AMYLASE 32 IU/L (1-118); CHLORIDE 102 mEq/L (99-109); POTASSIUM 4.4 mEq/L (3.7-5.4); PTT 35.8 SEC (25-37); SODIUM 136 mEq/L (136-147)
[2017-12-16 10:31] LABS: SERUM ETHYL ALCOHOL < 10 mg/dL
[2017-12-16 10:32] LABS: CREATININE 1.3 mg/dL (0.6-1.3); GFR ESTIMATE (CALCULATED) 43 mL/min/
[2017-12-16 10:33] LABS: UREA NITROGEN (BUN) 22 mg/dL (9-23)
[2017-12-16 10:35] LABS: GLUCOSE 173 mg/dL (70-99); LIPASE 3 U/L (1.0-51.0); TROP-I INTERPRETATION NEGATIVE; TROPONIN-I < 0.01 ng/mL (0.0-0.30)
[2017-12-16 14:40] VITALS: BP 119/57
[2017-12-16 16:38] VITALS: BP 137/73
[2017-12-16 20:06] VITALS: BP 109/57
[2017-12-16 23:53] VITALS: BP 113/63
[2017-12-17 03:11] VITALS: BP 129/60
[2017-12-17 04:38] LABS: BASOPHIL (%) 0.3 % (0-1); EOSINOPHIL (%) 1.7 % (0-5); EOSINOPHIL COUNT 0.1 K/uL (0-0.3); HEMATOCRIT 28.7 % (36.0-46.0); HEMOGLOBIN 9.4 G/DL (11.9-15.5); IMMATURE GRANULOCYTE (%) 0.3 % (0.0-0.7); LYMPHOCYTE (%) 21.6 % (15-42); LYMPHOCYTE COUNT 1.6 K/uL (1.0-2.8); MCH 32.5 PG (29.0-34.0); MCHC 32.8 G/DL (30.0-36.0); MCV 99.3 FL (83-99); MONOCYTE (%) 19.4 % (3-12); MONOCYTE COUNT 1.4 K/uL (0-0.8); NEUTROPHIL (%) 56.7 % (45-76); NEUTROPHIL COUNT 4.1 K/uL (1.8-6.4); PLATELET COUNT 216 K/uL (156-360); RBC DIS.WIDTH-CV 14.3 % (11.8-14.6); RED BLOOD COUNT 2.89 M/uL (3.80-5.20); WHITE BLOOD COUNT 7.2 K/uL (4.1-10.2)
[2017-12-17 04:52] LABS: CHLORIDE 104 mEq/L (99-109); POTASSIUM 4.3 mEq/L (3.7-5.4); SODIUM 137 mEq/L (136-147)
[2017-12-17 04:56] LABS: GLUCOSE 95 mg/dL (70-99)
[2017-12-17 04:58] LABS: CREATININE 1.2 mg/dL (0.6-1.3); GFR ESTIMATE (CALCULATED) 47 mL/min/
[2017-12-17 04:59] LABS: UREA NITROGEN (BUN) 18 mg/dL (9-23)
[2017-12-17 08:37] VITALS: BP 100/51
[2017-12-17 11:19] VITALS: BP 142/63
[2017-12-17 16:43] VITALS: BP 143/62
[2017-12-18 00:05] VITALS: BP 158/69
[2017-12-18 00:18] VITALS: BP 119/59
[2017-12-18 05:49] LABS: BASOPHIL (%) 0.4 % (0-1); EOSINOPHIL (%) 2.5 % (0-5); EOSINOPHIL COUNT 0.2 K/uL (0-0.3); HEMATOCRIT 27.2 % (36.0-46.0); HEMOGLOBIN 8.9 G/DL (11.9-15.5); IMMATURE GRANULOCYTE (%) 0.3 % (0.0-0.7); LYMPHOCYTE (%) 26.4 % (15-42); MCHC 32.7 G/DL (30.0-36.0); MCV 97.8 FL (83-99); MONOCYTE (%) 17.7 % (3-12); MONOCYTE COUNT 1.3 K/uL (0-0.8); NEUTROPHIL (%) 52.7 % (45-76); PLATELET COUNT 237 K/uL (156-360); RBC DIS.WIDTH-CV 14.1 % (11.8-14.6); RBC DIS.WIDTH-SD 50.2 % (39-53); RED BLOOD COUNT 2.78 M/uL (3.80-5.20); WHITE BLOOD COUNT 7.6 K/uL (4.1-10.2)
[2017-12-18 06:13] LABS: CHLORIDE 104 MEQ/L (99-109); CREATININE 1.4 MG/DL (0.6-1.3); GFR ESTIMATE (CALCULATED) 40 mL/min/; GLUCOSE 117 mg/dL (70-99); POTASSIUM 4.1 MEQ/L (3.7-5.4); SODIUM 136 MEQ/L (136-147); UREA NITROGEN (BUN) 19 mg/dL (9-23)
[2017-12-18 08:43] VITALS: BP 138/66
[2017-12-18 16:48] VITALS: BP 136/66
[2017-12-18 23:20] VITALS: BP 108/59
[2017-12-19 05:20] LABS: BASOPHIL (%) 0.1 % (0-1); EOSINOPHIL (%) 0.3 % (0-5); HEMATOCRIT 26.9 % (36.0-46.0); HEMOGLOBIN 8.9 G/DL (11.9-15.5); IMMATURE GRANULOCYTE (%) 0.4 % (0.0-0.7); LYMPHOCYTE (%) 22.7 % (15-42); LYMPHOCYTE COUNT 1.6 K/uL (1.0-2.8); MCH 32.2 PG (29.0-34.0); MCHC 33.1 G/DL (30.0-36.0); MCV 97.5 FL (83-99); MONOCYTE (%) 16.8 % (3-12); MONOCYTE COUNT 1.2 K/uL (0-0.8); NEUTROPHIL (%) 59.7 % (45-76); NEUTROPHIL COUNT 4.3 K/uL (1.8-6.4); PLATELET COUNT 243 K/uL (156-360); RED BLOOD COUNT 2.76 M/uL (3.80-5.20); WHITE BLOOD COUNT 7.2 K/uL (4.1-10.2)
[2017-12-19 08:00] VITALS: BP 78/54
[2017-12-19 09:27] VITALS: BP 105/53
[2017-12-19 16:00] VITALS: BP 134/62
[2017-12-19 23:47] VITALS: BP 109/53
[2017-12-20 07:15] VITALS: BP 124/76
[2017-12-20 10:48] VITALS: BP 120/56
[2017-12-20 16:24] VITALS: BP 128/75
[2017-12-20 23:40] VITALS: BP 135/66
[2017-12-21 04:57] LABS: HEMATOCRIT 26.6 % (36.0-46.0); HEMOGLOBIN 8.8 G/DL (11.9-15.5); MCH 32.7 PG (29.0-34.0); MCHC 33.1 G/DL (30.0-36.0); MCV 98.9 FL (83-99); PLATELET COUNT 237 K/uL (156-360); RBC DIS.WIDTH-CV 14.1 % (11.8-14.6); RED BLOOD COUNT 2.69 M/uL (3.80-5.20); WHITE BLOOD COUNT 6.3 K/uL (4.1-10.2)
[2017-12-21 05:33] LABS: CHLORIDE 106 MEQ/L (99-109); CREATININE 1.3 MG/DL (0.6-1.3); GFR ESTIMATE (CALCULATED) 43 mL/min/; GLUCOSE 92 mg/dL (70-99); SODIUM 139 MEQ/L (136-147); UREA NITROGEN (BUN) 22 mg/dL (9-23)
[2017-12-21 07:20] VITALS: BP 122/60
[2017-12-21 10:54] VITALS: BP 130/64
[2017-12-21 15:51] VITALS: BP 116/56
[2017-12-21] MEDS ORDERED: PREDNISONE20 MG PO (16:25)
== END 2017-12-21 20:07 | DRG 190 ==
LOC: EME 10:03 → EDOF 12:38 → 3EAST 12:38 → ENRESERV 12:39 → EDOF 13:04 → ENRESERV 13:34 → 3EAST 14:27
PROVIDERS: Emergency Medicine; Family Medicine
PROC: 5A09357 Assistance with Respiratory Ventilation, Less than 24 Consecutive Hours, Continuous Positive Airway Pressure (ICD-10-PCS; principal; 2017-12-16)
DX: J44.0 Chronic obstructive pulmonary disease with (acute) lower respiratory infection (principal); J96.21 Acute and chronic respiratory failure with hypoxia; J18.9 Pneumonia, unspecified organism; G93.40 Encephalopathy, unspecified; D64.9 Anemia, unspecified; J98.11 Atelectasis; F33.9 Major depressive disorder, recurrent, unspecified; J44.1 Chronic obstructive pulmonary disease with (acute) exacerbation; I25.10 Atherosclerotic heart disease of native coronary artery without angina pectoris; E66.9 Obesity, unspecified; E11.22 Type 2 diabetes mellitus with diabetic chronic kidney disease; E78.5 Hyperlipidemia, unspecified; I48.2 Chronic atrial fibrillation; I13.0 Hypertensive heart and chronic kidney disease with heart failure and stage 1 through stage 4 chronic kidney disease, or unspecified chronic kidney disease; N18.2 Chronic kidney disease, stage 2 (mild); I50.32 Chronic diastolic (congestive) heart failure; I69.359 Hemiplegia and hemiparesis following cerebral infarction affecting unspecified side; G47.33 Obstructive sleep apnea (adult) (pediatric); M77.31 Calcaneal spur, right foot; I65.23 Occlusion and stenosis of bilateral carotid arteries; I70.1 Atherosclerosis of renal artery; F41.9 Anxiety disorder, unspecified; I73.9 Peripheral vascular disease, unspecified; J20.9 Acute bronchitis, unspecified; Z87.891 Personal history of nicotine dependence; Z90.710 Acquired absence of both cervix and uterus; Z95.1 Presence of aortocoronary bypass graft; Z68.29 Body mass index [BMI] 29.0-29.9, adult; Z99.81 Dependence on supplemental oxygen; Z80.1 Family history of malignant neoplasm of trachea, bronchus and lung; Z82.49 Family history of ischemic heart disease and other diseases of the circulatory system
CPT/HCPCS: 70450; 71046; 71275; 73630; 80048; 80202; 81003; 82150; 82948; 83605; 83690; 84484; 85025; 85027; 85610; 85730; 86850; 86900; 86901; 87040; 87502; 93005; 94660; 94760; 94799; 97530 GP; 99202; 99281; 99285; G0480; J0692; J1815; J1956; J2543; J3010; J3370; J7030; J7040; J7050; J7512

== ENCOUNTER 2018-02-23 10:47 | Emergency (ER) | payer OTHER, BC ==
[~2018-02-23] VITALS: Ht 165.1 cm; Wt 80.0 kg
[~2018-02-23 10:47] MED LIST changes: +PREDNISONE20 MG PO; -TOPROL XL50 MG PO
[2018-02-23 12:27] LABS: BASOPHIL (%) 0.2 % (0-1); EOSINOPHIL (%) 13.8 % (0-5); EOSINOPHIL COUNT 2.1 K/uL (0-0.3); HEMATOCRIT 34.3 % (36.0-46.0); HEMOGLOBIN 11.4 G/DL (11.9-15.5); IMMATURE GRANULOCYTE (%) 0.5 % (0.0-0.7); LYMPHOCYTE (%) 10.2 % (15-42); LYMPHOCYTE COUNT 1.6 K/uL (1.0-2.8); MCH 33.2 PG (29.0-34.0); MCHC 33.2 G/DL (30.0-36.0); MONOCYTE (%) 9.3 % (3-12); MONOCYTE COUNT 1.4 K/uL (0-0.8); NEUTROPHIL COUNT 10.1 K/uL (1.8-6.4); PLATELET COUNT 208 K/uL (156-360); RBC DIS.WIDTH-CV 15.1 % (11.8-14.6); RBC DIS.WIDTH-SD 55.6 % (39-53); RED BLOOD COUNT 3.43 M/uL (3.80-5.20); WHITE BLOOD COUNT 15.2 K/uL (4.1-10.2)
[2018-02-23 12:40] LABS: CHLORIDE 108 mEq/L (99-109); POTASSIUM 4.5 mEq/L (3.7-5.4); SODIUM 140 mEq/L (136-147)
[2018-02-23 12:42] LABS: GLUCOSE 138 mg/dL (70-99)
[2018-02-23 12:46] LABS: CREATININE 1.5 mg/dL (0.6-1.3); GFR ESTIMATE (CALCULATED) 36 mL/min/
[2018-02-23 12:47] LABS: UREA NITROGEN (BUN) 26 mg/dL (9-23)
[2018-02-23] MEDS ORDERED: MOTRIN800 MG PO (13:44)
[2018-02-23 14:31] VITALS: BP 117/86
== END 2018-02-23 14:40 | disposition home or self-care (01) ==
LOC: EME 10:47
PROVIDERS: Emergency Medicine
DX: M19.011 Primary osteoarthritis, right shoulder (principal); M75.91 Shoulder lesion, unspecified, right shoulder; E11.9 Type 2 diabetes mellitus without complications; Z79.84 Long term (current) use of oral hypoglycemic drugs; J44.9 Chronic obstructive pulmonary disease, unspecified; F32.9 Major depressive disorder, single episode, unspecified; F41.9 Anxiety disorder, unspecified; I25.2 Old myocardial infarction; Z87.891 Personal history of nicotine dependence; Z86.73 Personal history of transient ischemic attack (TIA), and cerebral infarction without residual deficits; Z95.1 Presence of aortocoronary bypass graft; Z85.9 Personal history of malignant neoplasm, unspecified; Z90.710 Acquired absence of both cervix and uterus
CPT/HCPCS: 71045; 73030; 73060; 80048; 85025; 93005; 99281; 99284

== ENCOUNTER 2018-02-25 07:09 | Inpatient (IN) | payer OTHER, BC ==
[~2018-02-25] VITALS: Ht 167.6 cm; Wt 88.2 kg
[~2018-02-25 07:09] MED LIST changes: +MOTRIN800 MG PO
[2018-02-25 07:45] LABS: BASOPHIL (%) 0.2 % (0-1); EOSINOPHIL (%) 21.8 % (0-5); HEMATOCRIT 35.1 % (36.0-46.0); HEMOGLOBIN 11.7 G/DL (11.9-15.5); IMMATURE GRANULOCYTE (%) 0.5 % (0.0-0.7); LYMPHOCYTE (%) 12.1 % (15-42); LYMPHOCYTE COUNT 2.2 K/uL (1.0-2.8); MCH 33.2 PG (29.0-34.0); MCHC 33.3 G/DL (30.0-36.0); MCV 99.7 FL (83-99); MONOCYTE (%) 9.7 % (3-12); MONOCYTE COUNT 1.8 K/uL (0-0.8); NEUTROPHIL (%) 55.7 % (45-76); NEUTROPHIL COUNT 10.1 K/uL (1.8-6.4); PLATELET COUNT 196 K/uL (156-360); RBC DIS.WIDTH-CV 15.3 % (11.8-14.6); RBC DIS.WIDTH-SD 56.1 % (39-53); RED BLOOD COUNT 3.52 M/uL (3.80-5.20); WHITE BLOOD COUNT 18.1 K/uL (4.1-10.2)
[2018-02-25 07:59] LABS: CHLORIDE 108 mEq/L (99-109); POTASSIUM 4.5 mEq/L (3.7-5.4); SODIUM 141 mEq/L (136-147)
[2018-02-25 08:01] LABS: GLUCOSE 146 mg/dL (70-99)
[2018-02-25 08:05] LABS: CREATININE 1.7 mg/dL (0.6-1.3); GFR ESTIMATE (CALCULATED) 32 mL/min/; UREA NITROGEN (BUN) 29 mg/dL (9-23)
[2018-02-25 08:16] LABS: INTER. NORMALIZED RATIO 1.8
[2018-02-25 08:19] LABS: PTT 30.5 SEC (25-37)
[2018-02-25 08:21] LABS: TROP-I INTERPRETATION NEGATIVE; TROPONIN-I 0.01 ng/mL (0.0-0.30)
[2018-02-25] MEDS ORDERED: DICLOFENAC SOD100 GM TP (11:43)
[2018-02-25] MEDS ORDERED: TRULICITY0.75 MG/0. SC (11:43)
[2018-02-25] MEDS ORDERED: CILOSTAZOL100 MG PO (11:44)
[2018-02-25 12:10] VITALS: BP 153/66
[2018-02-25 12:27] LABS: BASE EXCESS -5.5 mEq/L (-3 to +3); BICARBONATE 19.2 mEq/L (22-26); CARBOXY HGB 1.9 % (0-5); COMMENTS - BLOOD GASES A+C+; DEVICE NC; METHEMOGLOBIN 1.3 % (0-1.5); O2 FLOW 3 L/MIN; PCO2 34 mm Hg (35-45); PO2 70 mm Hg (80-100); SITE RR; pH 7.36 (7.35-7.45)
[2018-02-25 12:28] LABS: TOTAL RESP RATE 12 resp/min
[2018-02-25 16:38] VITALS: BP 151/65
[2018-02-25 19:40] VITALS: BP 170/78
[2018-02-25 23:31] VITALS: BP 113/66
[2018-02-26 03:27] VITALS: BP 99/51
[2018-02-26 05:52] LABS: BASOPHIL (%) 0.2 % (0-1); EOSINOPHIL (%) 25.9 % (0-5); EOSINOPHIL COUNT 3.1 K/uL (0-0.3); HEMATOCRIT 30.9 % (36.0-46.0); HEMOGLOBIN 10.1 G/DL (11.9-15.5); IMMATURE GRANULOCYTE (%) 0.4 % (0.0-0.7); LYMPHOCYTE (%) 16.6 % (15-42); MCH 32.6 PG (29.0-34.0); MCHC 32.7 G/DL (30.0-36.0); MCV 99.7 FL (83-99); MONOCYTE (%) 9.8 % (3-12); MONOCYTE COUNT 1.2 K/uL (0-0.8); NEUTROPHIL (%) 47.1 % (45-76); NEUTROPHIL COUNT 5.6 K/uL (1.8-6.4); PLATELET COUNT 199 K/uL (156-360); RBC DIS.WIDTH-CV 14.8 % (11.8-14.6); RBC DIS.WIDTH-SD 54.2 % (39-53); WHITE BLOOD COUNT 11.9 K/uL (4.1-10.2)
[2018-02-26 06:20] LABS: CHLORIDE 108 MEQ/L (99-109); CREATININE 1.7 MG/DL (0.6-1.3); GFR ESTIMATE (CALCULATED) 32 mL/min/; GLUCOSE 134 mg/dL (70-99); POTASSIUM 4.7 MEQ/L (3.7-5.4); SODIUM 138 MEQ/L (136-147); UREA NITROGEN (BUN) 26 mg/dL (9-23)
[2018-02-26 07:27] VITALS: BP 122/60
[2018-02-26 23:35] VITALS: BP 117/68
[2018-02-27 07:31] VITALS: BP 106/54
[2018-02-27 16:18] VITALS: BP 102/52
[2018-02-28 00:24] VITALS: BP 100/58
[2018-02-28 06:35] LABS: BASOPHIL (%) 0.4 % (0-1); EOSINOPHIL (%) 21.6 % (0-5); EOSINOPHIL COUNT 1.6 K/uL (0-0.3); HEMATOCRIT 30.7 % (36.0-46.0); HEMOGLOBIN 10.1 G/DL (11.9-15.5); IMMATURE GRANULOCYTE (%) 0.4 % (0.0-0.7); LYMPHOCYTE (%) 35.1 % (15-42); LYMPHOCYTE COUNT 2.7 K/uL (1.0-2.8); MCHC 32.9 G/DL (30.0-36.0); MCV 97.2 FL (83-99); MONOCYTE COUNT 0.9 K/uL (0-0.8); NEUTROPHIL (%) 30.5 % (45-76); NEUTROPHIL COUNT 2.3 K/uL (1.8-6.4); PLATELET COUNT 212 K/uL (156-360); RBC DIS.WIDTH-CV 14.3 % (11.8-14.6); RED BLOOD COUNT 3.16 M/uL (3.80-5.20); WHITE BLOOD COUNT 7.6 K/uL (4.1-10.2)
[2018-02-28 07:03] LABS: CHLORIDE 107 MEQ/L (99-109); CREATININE 1.4 MG/DL (0.6-1.3); GFR ESTIMATE (CALCULATED) 40 mL/min/; POTASSIUM 4.2 MEQ/L (3.7-5.4); SODIUM 140 MEQ/L (136-147); UREA NITROGEN (BUN) 24 mg/dL (9-23)
[2018-02-28 07:04] LABS: GLUCOSE 98 mg/dL (70-99)
[2018-02-28 07:49] VITALS: BP 101/57
[2018-02-28] MEDS ORDERED: AUGMENTIN875 MG PO (12:00)
[2018-02-28] MEDS ORDERED: VALIUM5 MG PO (12:00)
[2018-02-28] MEDS ORDERED: LYRICA50 MG PO (12:00)
[2018-02-28] MEDS ORDERED: OXYCODONE HCL5 MG PO ×2 (12:00)
== END 2018-02-28 15:13 | DRG 194 ==
LOC: EME 07:09 → EDOF 10:12 → 2EAST 10:12 → ENRESERV 10:16 → CANRESERV 10:16 → ENRESERV 10:41 → 2EAST 11:51
PROVIDERS: Emergency Medicine; Family Medicine
PROC: 5A09357 Assistance with Respiratory Ventilation, Less than 24 Consecutive Hours, Continuous Positive Airway Pressure (ICD-10-PCS; principal; 2018-02-25)
DX: J15.9 Unspecified bacterial pneumonia (principal); J98.11 Atelectasis; F33.9 Major depressive disorder, recurrent, unspecified; G47.33 Obstructive sleep apnea (adult) (pediatric); I48.2 Chronic atrial fibrillation; M75.31 Calcific tendinitis of right shoulder; N18.2 Chronic kidney disease, stage 2 (mild); R09.02 Hypoxemia; J44.9 Chronic obstructive pulmonary disease, unspecified; I25.10 Atherosclerotic heart disease of native coronary artery without angina pectoris; E11.22 Type 2 diabetes mellitus with diabetic chronic kidney disease; E78.5 Hyperlipidemia, unspecified; I12.9 Hypertensive chronic kidney disease with stage 1 through stage 4 chronic kidney disease, or unspecified chronic kidney disease; M19.90 Unspecified osteoarthritis, unspecified site; E66.9 Obesity, unspecified; Z86.73 Personal history of transient ischemic attack (TIA), and cerebral infarction without residual deficits; Z87.891 Personal history of nicotine dependence; Z90.710 Acquired absence of both cervix and uterus; Z95.1 Presence of aortocoronary bypass graft; Z79.84 Long term (current) use of oral hypoglycemic drugs; Z68.31 Body mass index [BMI] 31.0-31.9, adult; Z80.1 Family history of malignant neoplasm of trachea, bronchus and lung; Z82.49 Family history of ischemic heart disease and other diseases of the circulatory system
CPT/HCPCS: 36600; 71045; 71250; 73030; 73060; 80048; 82803; 82948; 84484; 85025; 85610; 85730; 87040; 87641; 93005; 94010; 94660; 94799; 97530 GO; 97530 GP; 99202; 99281; 99284; 99285; J0456; J0696; J1885